=== PATIENT | female | born 1945 | race Caucasian/White ===

== ENCOUNTER 2016-07-31 15:16 | Emergency (ER) | payer OTHER ==
--- NOTE | 2016-07-31 15:56 | ED EKG INTERP ---
EKG Interpretation - EKG Time of EKG reading by physician:: 15:43 EKG Read and Signed by:: Davis Meng EKG Interpretation (*Must complete 3 of following elements*): Abnormal Rate: 80 Rhythm: normal sinus rhythm Comments: cannot rule out anterior infarct, age undetermined Attestation - Scribe Verification/Attestation Scribe:: Nadine Montero Acting as Scribe for:: Davis Meng Scribe documention review:: This chart was documented by a scribe and accurately reflects the service the provider performed and the decisions made by the provider.
--- NOTE | 2016-07-31 16:06 | EKG Report ---
Test Performed on : 07/31/2016 3:43:51 PM Test Reason : med clear Blood Pressure : / mmHG Vent. Rate : 080 BPM Atrial Rate : 080 BPM P-R Int : 158 ms QRS Dur : 084 ms QT Int : 380 ms P-R-T Axes : 068 008 038 degrees QTc Int : 438 ms Normal sinus rhythm. Cannot rule out Anterior infarct (cited on or before 03-OCT-2013) Abnormal ECG When compared with ECG of 03-OCT-2013 00:17, T wave inversion no longer evident in Inferior leads Unconfirmed Result
[2016-07-31 16:17] LABS: URINE CULTURE PL NEEDED? NO; URINE SOURCE CLEAN CATCH
[2016-07-31 16:25] LABS: MANUAL DIFF NEEDED? NO
[2016-07-31 16:28] LABS: BASO% 0.3 % (0.0-0.8); EOS# 0.03 X1000 (0.0-0.7); EOS% 0.5 % (0.0-10.0); HEMATOCRIT 37.2 % (37.0-47.0); HEMOGLOBIN 11.9 g/dL (12.0-16.0); IMM GRAN# 0.01 X1000 (0.0-0.04); IMM GRAN% 0.2 % (0.0-0.5); LYMPH# 1.95 X1000 (1.2-3.4); LYMPH% 31.8 % (20.5-51.1); MCV 90.7 FL (81-99); MONO# 0.58 X1000 (0.11-0.59); MONO% 9.5 % (1.7-9.3); MPV 9.3 FL (7.4-10.4); NEUT% 57.7 % (42.2-75.2); PLT 224 X1000 (130-400)
[2016-07-31 16:38] LABS: UR AMPHETAMINES QUAL NONE DETECTED (NONE DETECT); UR BARBITUATES QUAL NONE DETECTED (NONE DETECT); UR BENZODIAZEPIN QUAL NONE DETECTED (NONE DETECT); UR CANNABINOIDS QUAL NONE DETECTED (NONE DETECT); UR COCAINE QUAL NONE DETECTED (NONE DETECT); UR MDMA QUAL NONE DETECTED (NONE DETECT); UR METHADONE QUAL NONE DETECTED (NONE DETECT); UR METHAMPHETAMINE QUAL NONE DETECTED (NONE DETECT); UR OPIATES QUAL NONE DETECTED (NONE DETECT); UR OXYCODONE QUAL NONE DETECTED (NONE DETECT); UR PCP QUAL PRESUMPTIVE POSITIVE (NONE DETECT); UR TCA QUAL NONE DETECTED (NONE DETECT)
[2016-07-31 16:40] LABS: BILIRUBIN URINE NEGATIVE (NEGATIVE); BLOOD URINE NEGATIVE (NEGATIVE); CLARITY SL. CLOUDY (CLEAR); COLOR YELLOW; GLUCOSE URINE NEGATIVE (NEGATIVE); LEUKOCYTES URINE 1+ (NEGATIVE); NITRITE URINE NEGATIVE (NEGATIVE); PROTEIN URINE NEGATIVE (NEGATIVE); SP GRAVITY URINE 1.015; URINE EPITHELIAL CELLS <10 /HPF (<10); UROBILINOGEN URINE NORMAL
[2016-07-31 16:48] LABS: ACETAMINOPHEN < 1.2 ug/mL (10-30); AGAP 8; ALBUMIN 4.1 g/dL (3.5-5.0); ALKALINE PHOSPHATASE 124 U/L (32-104); BUN 15 mg/dL (8-22); CALCIUM 9.5 mg/dL (8.8-10.2); CHLORIDE 107 mmol/L (98-107); COSMO 286; GOT 14 U/L (10-30); GPT 11 U/L (10-36); MAGNESIUM 2.1 mg/dL (1.5-2.7); POTASSIUM 3.7 mmol/L (3.5-5.1); SODIUM 143 mmol/L (136-145); TCO2 28 mmol/L (25-35)
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
--- NOTE | 2016-07-31 20:24 | Diag Imaging Result Document ---
PROCEDURE NAME: HEAD W/O CONTRAST - 07/31/2016 CT BRAIN WITHOUT CONTRAST Dose reduction protocol. COMPARISON: 07/07/16. FINDINGS: No parenchymal hemorrhage. No epidural or subdural hematoma. No subarachnoid hemorrhage. There is mild atrophy. Minimal microvascular ischemic changes. Focal atrophy or long standing fluid collection along the left frontoparietal region. This is unchanged. No midline shift. No sinus opacification. IMPRESSION: No hemorrhage. No change from the prior exam. A preliminary report was given at 5:59 p.m.
[2016-07-31] MEDS ORDERED: CATAPRES PO ONE (20:58)
[2016-07-31] MEDS ORDERED: CATAPRES ONE (20:58)
[2016-07-31 21:01] VITALS: BP 196/108
--- NOTE | 2016-08-01 07:34 | Diag Imaging Result Document ---
PROCEDURE NAME: CHEST-2 VIEWS - 07/31/2016 FRONTAL AND LATERAL CHEST, TWO VIEWS: COMPARISON: 01/29/2014. FINDINGS: The lungs are well expanded. Mild increased AP diameter to the chest. The heart is not enlarged. The pulmonary vessels are small. No pleural effusions. Minimal atelectasis in the lower left lung. The right hemidiaphragm is elevated. No pneumonia. IMPRESSION: No acute abnormality.
== END 2016-07-31 21:16 ==
LOC: P.ED 15:16
DX: F25.0 Schizoaffective disorder, bipolar type (principal); Z04.6 Encounter for general psychiatric examination, requested by authority; E11.9 Type 2 diabetes mellitus without complications; R44.0 Auditory hallucinations; R44.1 Visual hallucinations; R94.31 Abnormal electrocardiogram [ECG] [EKG]; Z96.622 Presence of left artificial elbow joint; Z79.899 Other long term (current) drug therapy
CPT/HCPCS: 70450; 71020; 80053; 80305; 81001; 82607; 83735; 85025; 86592; 93005; G0480; 80320; 80324; 80329

== ENCOUNTER 2019-02-04 13:24 | Inpatient (IN) ==
--- NOTE | 2019-02-04 14:55 | Diag Imaging Result Doc PS360 ---
EXAM: CHEST-1 VIEW 02/04/2019 HISTORY: Fall TECHNIQUE: AP supine at [id number] COMMENT: There is COPD. There is no evidence of acute cardiac or pulmonary disease. Compared to 06/06/2018 there has been no appreciable change. IMPRESSION: Stable chest. Electronically signed by Luke Varner 02/04/2019 2:53 PM
--- NOTE | 2019-02-04 14:56 | Diag Imaging Result Doc PS360 ---
EXAM: XRAY PELVIS W/HIP 2-3VW LT INDICATION: fall, injury TECHNIQUE: 3 views COMPARISON: None. FINDINGS: There is an intertrochanteric fracture of the left hip with only mild displacement. A fracture line extends from the greater trochanter to the femoral shaft. No other discrete fracture is identified. There is no dislocation. The surrounding soft tissues are essentially unremarkable. IMPRESSION: Intertrochanteric fracture of the left hip as described. Electronically signed by Maurilio Alvares 02/04/2019 2:53 PM
[2019-02-04 15:08] LABS: URINE SOURCE CATH
[2019-02-04] MEDS ORDERED: ZOFRAN IV ONE (15:20)
[2019-02-04] MEDS ORDERED: DILAUDID IV ONE (15:20)
[2019-02-04 15:23] LABS: BASO# 0.03 X1000 (0.0-0.2); BASO% 0.3 % (0.0-0.8); EOS# 0.03 X1000 (0.0-0.7); EOS% 0.3 % (0.0-10.0); HEMATOCRIT 41.4 % (37.0-47.0); HEMOGLOBIN 13.4 g/dL (12.0-16.0); LYMPH# 3.26 X1000 (1.2-3.4); LYMPH% 31.8 % (20.5-51.1); MCH 29.6 PG (27-31); MCHC 32.4 g/dL (33-37); MCV 91.4 FL (81-99); MONO# 1.45 X1000 (0.11-0.59); MONO% 14.2 % (1.7-9.3); MPV 9.5 FL (7.4-10.4); NEUT# 5.37 X1000 (1.4-6.5); NEUT% 52.4 % (42.2-75.2); PLT 198 X1000 (130-400); RBC 4.53 XMIL (4.2-5.4); RDW 16.2 % (11.5-14.5); WBC 10.24 X1000 (4.8-10.8)
--- NOTE | 2019-02-04 15:32 | PROVIDER DOCUMENTATION ---
This chart was entered by Lynda Mendoza Scribe, acting as scribe for Win Jaimes MD. HPI-Musculoskeletal Pain/Inj - GENERAL Chief Complaint: Fall Stated Complaint: fall, left hip pain Time Seen by Provider: 02/04/19 13:34 Source: patient, EMS (first response) - HX OF PRESENT ILLNESS-MUSKULOSKELTAL Nature of Presenting Problem: 73 YOWF presents to the ed with c/o left hip pain and deformity noted shortened and externally rotated. pt was at the [facility] and fell from standing position landing on left side. pt sts pain only present of movement of left hip or leg and declines pain medication on exam. Quality of Pain: reports: sharp Severity in ED: severe (with movement) Onset/Duration: just prior to arrival Timing: intermittent Modifying Factors: improves with: immobilization. worse with: movement, palpation Any recent injury?: Yes Locality of Occurance: Other (3D Forms) Similar Symptoms Previously?: No Recently seen or treated by another doctor?: No - FALL INJURY Location of Pain/Injury: reports: other (left hip) Reason for Fall: reports: unknown Symptoms prior to fall:: reports: none Loss of Consciousness: no loss of consciousness Injury Associated Symptoms: reports: joint pain (left hip), snap/crack/pop sensation, unable to bear weight, trouble walking. denies: back/neck pain, chest pain, nausea, shortness of breath, vomiting - HIP/PELVIS PAIN/INJURY Hip Pain Location: reports: hip (L) Pain Radiation: reports: no radiation Context / Method of Injury: reports: fall Associated Symptoms: reports: denies symptoms Review of Systems - Adult - REVIEW OF SYSTEMS - ADULT Constitutional: denies: chills, fever Eyes: reports: no symptoms reported Ears, Nose, Mouth & Throat: reports: no symptoms reported Cardiovascular: denies: chest pain, palpitations Respiratory: reports: no symptoms reported Gastrointestinal: denies: abdominal pain, diarrhea, nausea, vomiting Genitourinary: reports: no symptoms reported Musculoskeletal: reports: see HPI, joint pain (left hip). denies: back pain, neck pain Integumentary: reports: no symptoms reported Neurological: denies: dizziness/vertigo, headache/migraines Psychiatric: reports: no symptoms reported Endocrine: reports: no symptoms reported Hematologic/Lymphatic: reports: no symptoms reported Allergic/Immunologic: reports: no symptoms reported All Other Systems: Reviewed and Negative Past History - Adult - PAST MEDICAL HISTORY-ADULT Review of Records: reports: Old Records Reviewed, Nursing Assessment Review, Medications Reviewed, Social history reviewed & non-contributory. Major Childhood Illnesses: reports: denies history Cardiovascular: reports: HTN, other (vascular dysfunction) Respiratory: reports: denies history Gastrointestinal: reports: denies history Obstetrical/Gynecological: reports: denies history Genitourinary: reports: denies history Musculoskeletal: reports: denies history Neurological: reports: CVA Psychiatric: reports: bipolar, schizophrenia Endocrine/Immune: reports: Diabetes, thyroid disorder Diabetes Type: Type 2 Diabetes controlled by:: Diet Other Conditions: reports: denies history - PRIOR SURGERIES/PROCEDURES Surgical/Procedure History: reports: hysterectomy, hernia repair, joint replacement (lt elbow) - PRIOR HOSPITALIZATIONS Prior Hospitalizations: reports: for other non-related - IMMUNIZATION STATUS Childhood Immunizations: See Nurse Assessment Flu Vaccine: See Nurse Assessment - FAMILY HISTORY Family History: reviewed, not pertinent - SOCIAL HISTORY Smoking: denies Substance Use: alcohol Alcohol Use Frequency: occasionally Number of drinks per typical drinking period:: 3-4 drinks Living Situation: alone Physical Exam-Injury Related - Physical Exam-Injury Related Initial Vital Signs Reviewed: Yes General Appearance: appears well, alert, mild distress (pain only with movement of lle), obese Eyes: PERRL/EOMI, pink conjunctivae Head, Ears, Nose, Mouth & Throat: moist mucous membranes, normal ENT inspection Neck: non-tender, full range of motion, supple, normal inspection Respiratory: chest non-tender, lungs clear, normal breath sounds Cardiovascular: normal peripheral pulses, regular rate, rhythm Chest/Breast: deferred Abdominal Exam: normal bowel sounds, non tender, soft Female Genitalia/Pelvic Exam: deferred Male Genitalia: deferred Rectal Exam: deferred Hemoccult Exam: deferred Lymphatic: no adenopathy Back Exam: normal inspection, no CVA tenderness, no vertebral tenderness Extremity: normal capillary refill, deformity (LEFT HIP WITH lle SHORTENED AND EXTERNALLY ROTATED). negative: normal gait, normal inspection Integumentary: normal color, warm/dry Psych/Mental Status: normal mood/affect, normal thought content, normal thought process, oriented x 3 - Glascow Coma Score Best Eye Response (Dusty): (4) open spontaneously Best Verbal Response (Dusty): (5) oriented Best Motor Response (Dusty): (6) obeys commands Dusty Total: 15 Progress - PLAN OF CARE/RESULTS Progress/Plan/Lab Results: Vital Signs - 8 hr 02/04/19 13:31 Temperature 98.1 F Pulse Rate 77 Respiratory Rate 24 Blood Pressure 167/124 O2 Sat by Pulse Oximetry 95 Laboratory Results - last 24 hr 02/04/19 02/04/19 14:10 14:10 WBC 10.24 RBC 4.53 Hgb 13.4 Hct 41.4 MCV 91.4 MCH 29.6 MCHC 32.4 L RDW Std Deviation 16.2 H Plt Count 198 MPV 9.5 Immature Gran % (Auto) 1.0 H Neut % (Auto) 52.4 Lymph % (Auto) 31.8 [place] % (Auto) 14.2 H Eos % (Auto) 0.3 Baso % (Auto) 0.3 Immature Gran # (Auto) 0.10 H Neut # (Auto) 5.37 Lymph # (Auto) 3.26 Salem # (Auto) 1.45 H Eos # (Auto) 0.03 Baso # (Auto) 0.03 Urine Source CATH Orders Category Date Time Status Flowers Cath Insertion ORDERED Care 02/04/19 15:05 Active CHEST-1 VIEW [RAD] Stat Exams 02/04/19 14:38 Completed XRAY PELVIS W/HIP 2-3VW LT [RAD] Stat Exams 02/04/19 13:38 Completed CBC WITH ELECTRONIC DIFF [HEME] Stat Lab 02/04/19 14:10 Completed COMPREHENSIVE METABOLIC PANEL [CHEM] Stat Lab 02/04/19 14:10 Received PROTIME WITH INR [COAG] Stat Lab 02/04/19 14:10 Received PTT [COAG] Stat Lab 02/04/19 14:10 Received TYPE & SCREEN [BBK] Stat Lab 02/04/19 14:49 Received URINALYSIS W/POSS RFLX CULT [URINALYSIS] Stat Lab 02/04/19 14:10 Results Hydromorphone [Dilaudid] Med 02/04/19 15:20 Discontinued 1 mg IV NOW ONE Ondansetron [Zofran] Med 02/04/19 15:20 Discontinued 4 mg IV NOW ONE EKG [EKG] Stat Ther 02/04/19 13:39 Draft Result Diagrams: 02/04/19 14:10 - REASSESSMENT Reassessment #1 Time Reassessed: 15:11 Status: unchanged - EKG 1 Time of EKG reading by physician:: 14:54 EKG Read and Signed by:: Win Jaimes EKG Interpretation (*Must complete 3 of following elements*): Abnormal Rate: 77 Rhythm: nsr Lamont: normal QRS: other (low voltage qrs) MS Interval: normal Comments: nonspecific ST abnormality - XRAY 1 XRAY: Bilateral XRAY Study: Chest Impression: See EMR Report (EXAM: CHEST-1 VIEW 02/04/2019 HISTORY: Fall TECHNIQUE: AP supine at [id number] COMMENT: There is COPD. There is no evidence of acute cardiac or pulmonary disease. Compared to 06/06/2018 there has been no appreciable change. IMPRESSION: Stable chest. Electronically signed by Luke Varner 02/04/2019 2:53 PM 02/04/19 1453 Interpreting Physician: Luke Varner MD Dictated Date/Time: 02/04/19 1452 cc: Minh Gary MD; Vinayak Dunlap MD) 2 XRAY: Left XRAY Study: Hip Impression: See EMR Report (EXAM: XRAY PELVIS W/HIP 2-3VW LT INDICATION: fall, injury TECHNIQUE: 3 views COMPARISON: None. FINDINGS: There is an intertrochanteric fracture of the left hip with only mild displacement. A fracture line extends from the greater trochanter to the femoral shaft. No other discrete fracture is identified. There is no dislocation. The surrounding soft tissues are essentially unremarkable. IMPRESSION: Intertrochanteric fracture of the left hip as described. Electronically signed by Maurilio Alvares 02/04/2019 2:53 PM 02/04/19 1453 Interpreting Physician: Maurilio Alvares MD Dictated Date/Time: 02/04/19 1452 cc: Win Jaimes MD; Vinayak Dunlap MD) - CONSULTS/PCP/HOSPITALIST Notification #1 *Consult/PCP/Hospitalist*: ortho dr ruth Time Discussed: 15:29 Reason/Comments: phone consult, agreed to consult. #2 Consult: Dr Dnulap Time Discussed: 15:31 Consult Disposition: Will see in ED, Admit Departure - Departure Date of Disposition Decision: 02/04/19 Time of Disposition Decision: 15:31 DIAGNOSIS: Intertrochanteric fracture, HTN (hypertension) Disposition: ADMITTED INPATIENT 09 Certified Medical Emergency: Emergent Condition: Fair Referrals and Follow-Ups: Vinayak Dunlap MD [Primary Care Provider] - - Critical Care Note This patient required my direct & personal management of CC.: No Attestation - Physician/ DIANE Attestation Patient care was provided by Advanced Practice Provider:: No The physician spent face to face time with patient:: Yes Advanced Practice Provider documentation review:: Supervising physician onsite and consulted in the evaluation and care of this patient. The physician did have a face to face encounter with the patient. This chart was documented by the indicated scribe, (Lynda Mendoza Scribe) and accurately reflects the services I performed and decisions made by me, Win Jaimes MD, as attested by the provider's signature.
--- NOTE | 2019-02-04 15:36 | EKG Report ---
Test Performed on : 02/04/2019 2:54:25 PM Test Reason : surgical clearance Blood Pressure : / mmHG Vent. Rate : 077 BPM Atrial Rate : 077 BPM P-R Int : 160 ms QRS Dur : 062 ms QT Int : 358 ms P-R-T Axes : 055 015 046 degrees QTc Int : 405 ms Normal sinus rhythm. Low voltage QRS Nonspecific ST abnormality Abnormal ECG When compared with ECG of 06-JUN-2018 14:15, No significant change was found Unconfirmed Result
[2019-02-04 15:38] LABS: INR 0.99; PROTIME 13.2 Seconds (11.0-16.0); PTT 26.2 Seconds (22.3-41.8)
[2019-02-04 15:39] LABS: AGAP 18; ALB/GLOB RATIO 1.7; ALBUMIN 3.8 g/dL (3.5-5.0); ALKALINE PHOSPHATASE 67 U/L (32-104); BUN 24 mg/dL (8-22); CALCIUM 9.3 mg/dL (8.8-10.2); CHLORIDE 102 mmol/L (98-107); COSMO 286; CREATININE 0.8 mg/dL (0.5-0.9); ESTIMATED GFR > 60; GLUCOSE 181 mg/dL (70-104); GOT 22 U/L (10-30); GPT 21 U/L (10-36); POTASSIUM 4.3 mmol/L (3.5-5.1); SODIUM 139 mmol/L (136-145); TCO2 19 mmol/L (25-35); TOTAL BILIRUBIN 0.27 mg/dL (0.20-1.00); TOTAL PROTEIN 6.1 g/dL (6.3-8.3)
[2019-02-04 15:43] LABS: BILIRUBIN URINE NEGATIVE (NEGATIVE); BLOOD URINE NEGATIVE (NEGATIVE); COLOR YELLOW; GLUCOSE URINE TRACE mg/dL (NEGATIVE); KETONE URINE TRACE mg/dL (NEGATIVE); LEUKOCYTES URINE NEGATIVE (NEGATIVE); NITRITE URINE NEGATIVE (NEGATIVE); PH URINE 5.5; PROTEIN URINE TRACE mg/dL (NEGATIVE); TURBIDITY URINE CLEAR (CLEAR); UROBILINOGEN URINE NORMAL (NORMAL)
[2019-02-04 15:45] LABS: UR EPITHELIAL CELLS <10 /HPF (<10); URINE BACTERIA NEGATIVE /HPF; URINE RBC <10 /HPF (<10); URINE WBC <10 /HPF (<10)
[2019-02-04] MEDS ORDERED: DILAUDID IM PRN (16:57)
[2019-02-04] MEDS ORDERED: ZOFRAN IV PRN (16:57)
[2019-02-04] MEDS ORDERED: DILAUDID IV PRN (18:56)
--- NOTE | 2019-02-04 19:08 | HISTORY AND PHYSICAL ---
CHIEF COMPLAINT: Fall and injury to her left hip. PRESENT ILLNESS: This is the first recent [facility] admission for this 73-year-old white female [facility] and tripped on a chair, falling and hitting her left hip. She was brought to the emergency room, and x-ray revealed intertrochanteric fracture, minimally displaced of the left hip. She was admitted for orthopedic consultation, repair of her hip fracture, and for further evaluation. She did not complain of dizziness and stated that her leg did not just give way. She has not fallen at home recently. She has a psychiatric history with schizoaffective disorder, and her last admission to [facility] was in May of this year. She has been followed by Dr. Orellana with psychiatric medications including Depakote. Chest x- ray in the emergency room showed some COPD. There is smoking history many years ago but not recently. PAST MEDICAL HISTORY: No recent medical hospitalizations. She has had several psychiatric admissions over the past few years. PRESENT MEDICATIONS: Metformin 500 mg at bedtime, Depakote 1000 mg p.o. at bedtime. ALLERGIES: Chlorpromazine, haloperidol, and others. REVIEW OF SYSTEMS: Significant for moderate obesity and venous insufficiency of her legs with edema. She has had no recent shortness of breath or chest pain. There is history of constipation, but bowels have been moving fairly regular for the past few weeks. There is no history of recent weight change. FAMILY HISTORY: Significant for hypertension and obesity. SOCIAL HISTORY: No recent smoking or alcohol usage. She lives with her sister. There are occasional arguments and delusional thoughts with confusion. PHYSICAL EXAMINATION: VITAL SIGNS: Temperature 98.4 degrees, heart rate 67, respirations 18, blood pressure 167/75, O2 saturation on nasal oxygen 100%. GENERAL: Patient is a well-developed, well-nourished, obese white female in mild distress with left hip pain. HEENT: Pupils equal, round, and reactive to light. Tympanic membranes without inflammation. Pharynx benign with no erythema or exudate. NECK: Supple with no mass or lymphadenopathy. There is no carotid bruit. HEART: Regular in rate and rhythm with no murmur, rub or gallop. LUNGS: Clear with no rales or rhonchi. ABDOMEN: Obese with no mass or organomegaly. EXTREMITIES: Pain with any motion of the left hip. There is a small contusion on her left elbow and left forearm secondary to the fall. There is 1+ ankle edema. RECTAL AND GENITALIA: Deferred. IMPRESSION: Intertrochanteric fracture of the left hip, diabetes, gross obesity, schizoaffective disorder. PLAN: Admit for orthopedic evaluation and surgery. She will most likely need rehab at discharge. cc: Vinayak Dunlap MD MTDD
[2019-02-04] MEDS: DEPAKOTE PO SCH (21:21)
[2019-02-04] MEDS: DILAUDID IV PRN ×2 (21:30→23:59)
[2019-02-04] MEDS ORDERED: CALMOSEPTINE OINTMENT TOP PRN (21:52)
[2019-02-04] MEDS ORDERED: NARCAN IV ONE (23:44)
[2019-02-04] MEDS ORDERED: NARCAN ONE (23:44)
[2019-02-05] MEDS: GLUCOPHAGE PO SCH
--- NOTE | 2019-02-05 06:41 | ORTHOPAEDICS CONSULTATION ---
DATE: 02/05/2019 CHIEF COMPLAINT: Left hip pain. HISTORY OF PRESENT ILLNESS: Ms. Stevenson is a 73-year-old female, who tripped and fell yesterday on 02/04/2019, and injured this left hip. She was brought to the emergency department where they identified a left hip fracture. She was admitted per the hospitalist service. She denies any dizziness or loss of consciousness. She does have a pertinent past medical history of schizoaffective disorder. She has been hurting in the left hip. She denies pain anywhere else. PAST MEDICAL HISTORY: Several psychiatric admissions over the past year for schizoaffective disorder. MEDICATIONS: Metformin and Depakote. ALLERGIES: Allergies are to haloperidol and chlorpromazine. SOCIAL HISTORY: She denies any smoking or alcohol use. FAMILY HISTORY: Positive for hypertension and obesity. REVIEW OF SYSTEMS: Positive for this left hip pain. All other systems are essentially negative or as listed above. PHYSICAL EXAMINATION: General: A well-developed female. She is lying in the hospital bed in no acute distress. Head and Neck: Normocephalic, atraumatic. Respirations: Nonlabored breathing. Cardiovascular: Regular rate. Abdomen: Nondistended. Extremities: Left lower extremity exam shows tenderness to palpation of the hip, it is little bit externally rotated. She does have good sensation to light touch to the toes. She has a faint DP pulse. RADIOGRAPHS: Several views of the left hip show an intertrochanteric/subtrochanteric femur fracture. ASSESSMENT: Left hip fracture. PLAN: I discussed with the patient and her family member about surgical intervention today. We are going to plan on trochanteric femoral nailing. She is n.p.o., and she is nonweightbearing left lower extremity right now. cc: MD Vinayak Flores MD
[2019-02-05] MEDS ORDERED: CALMOSEPTINE OINTMENT TOP PRN (08:27)
--- NOTE | 2019-02-05 09:14 | Diag Imaging Result Doc PS360 ---
CHEST-1 VIEW - 02/05/2019 INDICATION: dyspnea COMPARISON: 02/04/2019 FINDINGS: Lung volumes are severely low. No obvious infiltrates. Heart size remains top normal. IMPRESSION: Severely low lung volumes. Electronically signed by Mikhail Eller 02/05/2019 9:12 AM
--- NOTE | 2019-02-05 09:27 | PROGRESS NOTE ---
DATE: 02/05/2019 INTERVAL HISTORY: Vital signs, temperature 98.1 degrees, heart rate 88, respirations 20, blood pressure 137/74, O2 saturation 99% on Venturi mask. The patient had moderate hip pain over the night requiring two 2 to 3 hour IV Dilaudid. She developed hypoxia requiring O2 per mask. Lungs are clear to auscultation this morning. Abdomen is soft. PLAN: Chest x-ray, nebulizer treatments with albuterol and Atrovent, and pulmonary arteriogram to rule out PE. cc: Vinayak Dunlap MD
[2019-02-05] MEDS: DUONEB (A & A) INH SCH ×3 (10:10→20:20)
--- NOTE | 2019-02-05 10:11 | Diag Imaging Result Doc PS360 ---
CT ANGIOGRM PULMONARY ARTERIES - 02/05/2019 INDICATION: chest pain TECHNIQUE: Axial CT images were obtained after administering intravenous contrast. Coronal MIP images were generated. COMPARISON: None FINDINGS: There is a filling defect in the right lower lobe pulmonary artery. Heart size is top normal with no pericardial effusion. Lung volumes are severely low with significant bibasilar atelectasis. Otherwise no significant infiltrates. Airways are grossly clear. Upper abdomen appears normal. Bony structures are intact. IMPRESSION: Single pulmonary embolism in the right lower lobe pulmonary artery. This report was discussed with RT Simón on 02/05/2019 at 10:05 AM and was readback. This exam was performed using automated exposure control, adjustment of mA or kV according to patient size, and/or use of iterative reconstruction technique Electronically signed by Mikhail Eller 02/05/2019 10:08 AM
--- NOTE | 2019-02-05 13:33 | EKG Report ---
Test Performed on : 02/05/2019 1:26:49 PM Test Reason : PE Blood Pressure : / mmHG Vent. Rate : 084 BPM Atrial Rate : 084 BPM P-R Int : 140 ms QRS Dur : 076 ms QT Int : 356 ms P-R-T Axes : 067 040 055 degrees QTc Int : 420 ms Normal sinus rhythm. Normal ECG When compared with ECG of 04-FEB-2019 14:54, (Unconfirmed) No significant change was found Confirmed by Emili ARROYO, Jose Giron ([id number]) on 02/06/2019 8:29:00 AM
[2019-02-05] MEDS ORDERED: HEPARIN 25,000 UNITS/D5W 25,000 UNIT/250 ML IV.SOLN IV SCH ×2 (14:00→19:20)
[2019-02-05] MEDS ORDERED: HEPARIN IV ONE (14:02)
[2019-02-05] MEDS: DILAUDID IV PRN ×2 (15:29→22:35)
--- NOTE | 2019-02-05 18:34 | PROGRESS NOTE ---
DATE: 02/05/2019 VITAL SIGNS: Temperature 97.8 degrees, heart rate 82, respirations 17, blood pressure 127/78, O2 saturation on Venturi mask 88%. Patient removes the mask from her face at times. IMAGING: Chest x-ray this morning was unremarkable. Pulmonary arteriogram revealed pulmonary embolus in the right upper lung. ASSESSMENT: Discussion was made with Dr. Haider, surgeon, and Dr. Esparza, anesthesiologist. There was fear that the patient would develop ARDS and be difficult to get off the ventilator postop if she had surgery before her lungs improved. She was placed on heparin to treat the blood clot and pulmonary embolus. She will most likely have hip surgery on Sunday and remain on heparin until that time. She was placed on a full liquid diet. She seems somewhat lethargic, most likely due to pain medicines. Nebulizer treatments with albuterol and Atrovent were added. PLAN: Heparin per protocol, probable hip surgery on Sunday. cc: Vinayak Dunlap MD
[2019-02-05] MEDS: DEPAKOTE PO SCH (21:38)
[2019-02-06] MEDS: GLUCOPHAGE PO SCH ×2 (00:16→18:29)
[2019-02-06] MEDS ORDERED: TYLENOL PR PRN (00:40)
[2019-02-06] MEDS ORDERED: TYLENOL PO PRN (00:40)
[2019-02-06] MEDS ORDERED: HEPARIN 25,000 UNITS/D5W 25,000 UNIT/250 ML IV.SOLN IV SCH ×2 (01:40→14:00)
[2019-02-06] MEDS: DUONEB (A & A) INH SCH ×4 (03:35→21:37)
[2019-02-06 07:05] LABS: BASO# 0.01 X1000 (0.0-0.2); BASO% 0.1 % (0.0-0.8); HEMATOCRIT 35.8 % (37.0-47.0); HEMOGLOBIN 10.8 g/dL (12.0-16.0); IMM GRAN# 0.07 X1000 (0.0-0.04); IMM GRAN% 0.7 % (0.0-0.5); LYMPH% 16.9 % (20.5-51.1); MCH 29.8 PG (27-31); MCHC 30.2 g/dL (33-37); MCV 98.6 FL (81-99); MONO# 2.31 X1000 (0.11-0.59); MPV 9.1 FL (7.4-10.4); NEUT# 5.96 X1000 (1.4-6.5); NEUT% 59.3 % (42.2-75.2); PLT 150 X1000 (130-400); RBC 3.63 XMIL (4.2-5.4); RDW 16.8 % (11.5-14.5); WBC 10.05 X1000 (4.8-10.8)
[2019-02-06 07:41] LABS: LYMPHS 18 % (21-51); MONO 2 % (1-9); SEGS 78 % (42-75)
--- NOTE | 2019-02-06 08:48 | PROGRESS NOTE ---
DATE: 02/06/2019 OBJECTIVE: VITAL SIGNS: Stable with temperature 97.9 degrees, heart rate 84, respirations 15, blood pressure 118/68, O2 saturation on non-rebreather mask 99%. LABORATORY DATA: PTT per protocol, last reading was 68.8. Hemoglobin 10.8, hematocrit 35.8, white blood count 42902 with 59% neutrophils. Sugar 154. Pre-albumin 17.1. Intake and output, she was able to take 400 mL of p.o. liquids yesterday. Balance was -792 yesterday. She has had good urine output. IMAGING: Chest is clear to auscultation. PLAN: Improved respiratory status post blood clot in her right lung prior to hip surgery. Chest x-ray, blood gases and laboratory will be done tomorrow morning. Hopefully, her left hip can be pinned tomorrow. cc: Vinayak Dunlap MD
[2019-02-06] MEDS: DILAUDID IV PRN ×2 (13:41→23:23)
[2019-02-06] MEDS: DEPAKOTE PO SCH (22:02)
--- NOTE | 2019-02-07 00:56 | ORTHOPAEDICS PROGRESS NOTE ---
DATE: 02/06/2019 SUBJECTIVE: No acute events overnight. Patient is still on oxygen via non-rebreather. Her pulmonary status is improving per hospitalist note. She has no other complaints. OBJECTIVE: HEENT: Non-rebreather oxygen mask on. O2 sats 97%. Extremity: Left lower extremity reveals skin intact. Thighs soft and compressible. She had pain with log roll of the left hip. She is tender to palpation in her groin as well as lateral aspect of the hip. She is nontender in her knee, leg, ankle, and foot. Motor intact to EHL, tibialis anterior, gastrocsoleus complex. Sensation intact to light touch L3 to S1. Dorsalis pedis pulse is palpable. ASSESSMENT: A 74-year-old female with left intertrochanteric femur fracture. PLAN: Long discussion was held with the patient regarding injury and treatment for this. She has the unfortunate complication of DVT and pulmonary embolus at her admission, which has postponed surgery. I talked with Anesthesia today, who is going to come evaluate the patient again this evening. We discussed risks of surgery with the patient. Given her recent PE, she is going to be at high risk for serious complications, most likely from anesthesia. Other risks of surgery include infection, bleeding, damage to nerves and vessels around the area, continued pain following surgery, nonunion, malunion, need for revision surgery. We will tentatively make patient NPO at midnight tonight with plans for possible closed reduction intramedullary nailing tomorrow, if cleared by Anesthesia. She should continue to be nonweightbearing left lower extremity. Appreciate hospitalist recommendations. cc: Vinayak Dunlap MD
[2019-02-07] MEDS: DUONEB (A & A) INH SCH ×4 (03:37→21:49)
[2019-02-07 04:23] LABS: ALLEN TEST YES; BE 10.2 mmoll (-3.0-3.0); BLOOD TYPE ARTERIAL; HCO3-(ACT) 32.8 mmoll (20.0-26.0); METHB 1.3 % (0.0-1.5); O2(CT) 13.2 mL/dL (15.0-23.0); PO2(98.6) 63 mmHg (60-100); SAMPLE BLOOD; SAO2 95.5 % (95.0-100.0); THB 10.2 g/dL (11.5-17.4); pH(98.6) 7.42 (7.35-7.45)
[2019-02-07 04:27] LABS: MODALITY CANNULA; PCO2(98.6) 56 mmHg (35-45)
[2019-02-07] MEDS: DILAUDID IV PRN ×2 (05:52→13:51)
[2019-02-07 06:44] LABS: BASO# 0.01 X1000 (0.0-0.2); BASO% 0.1 % (0.0-0.8); EOS# 0.01 X1000 (0.0-0.7); EOS% 0.1 % (0.0-10.0); HEMATOCRIT 30.1 % (37.0-47.0); HEMOGLOBIN 9.2 g/dL (12.0-16.0); IMM GRAN# 0.05 X1000 (0.0-0.04); IMM GRAN% 0.5 % (0.0-0.5); LYMPH# 2.02 X1000 (1.2-3.4); LYMPH% 21.7 % (20.5-51.1); MCH 29.6 PG (27-31); MCHC 30.6 g/dL (33-37); MCV 96.8 FL (81-99); MONO# 1.85 X1000 (0.11-0.59); MONO% 19.9 % (1.7-9.3); MPV 8.8 FL (7.4-10.4); NEUT# 5.35 X1000 (1.4-6.5); NEUT% 57.7 % (42.2-75.2); PLT 139 X1000 (130-400); RBC 3.11 XMIL (4.2-5.4); RDW 16.4 % (11.5-14.5); WBC 9.29 X1000 (4.8-10.8)
--- NOTE | 2019-02-07 07:02 | Diag Imaging Result Doc PS360 ---
EXAM: CHEST-PORTABLE 02/07/2019 HISTORY: dyspnea TECHNIQUE: AP portable at 0603 COMMENT: The inspiration is less optimal than on 02/05/2019. There is presumably still some atelectasis in both lower lobes. No additional abnormalities are present. IMPRESSION: Bibasilar atelectasis. Poor inspiration. Electronically signed by Luke Varner 02/07/2019 7:00 AM
[2019-02-07 07:05] LABS: AGAP 7; BUN 26 mg/dL (8-22); CALCIUM 8.3 mg/dL (8.8-10.2); CHLORIDE 98 mmol/L (98-107); COSMO 281; CREATININE 0.6 mg/dL (0.5-0.9); ESTIMATED GFR > 60; GLUCOSE 149 mg/dL (70-104); SODIUM 137 mmol/L (136-145); TCO2 32 mmol/L (25-35)
--- NOTE | 2019-02-07 10:01 | PROGRESS NOTE ---
DATE: 02/07/2019 Vital signs stable with temperature 98.4 degrees, heart rate 76, respirations 16, blood pressure 129/51, and O2 saturation on nasal oxygen 96%. Blood gases: A pH 7.42, pCO2 56, PO2 of 63 on 5 L nasal oxygen. Sodium 137, potassium 5.0, BUN 26, creatinine 0.6, glucose 151, calcium 8.3, hemoglobin 9.2, hematocrit 30.1, and white blood count 9300. Chest x-ray shows some atelectasis at the bases due to poor inspiration. She is more alert this morning, and says she rested well last night. Chest is clear to auscultation. Abdomen is soft. Plan is to hopefully surgical procedure today. Anesthesia evaluation is pending. Patient is still on heparin drip. Protamine sulfate will need to be given prior to surgery to reduce anticoagulation. cc: Vinayak Dunlap MD
[2019-02-07] MEDS: HEPARIN 25,000 UNITS/D5W 25,000 UNIT/250 ML IV.SOLN IV SCH ×2 (10:26→18:16)
[2019-02-07] MEDS ORDERED: HEPARIN IV ONE (10:30)
--- NOTE | 2019-02-07 14:15 | ORTHOPAEDICS PROGRESS NOTE ---
DATE: 02/07/2019 SUBJECTIVE: No acute events overnight. The patient was evaluated by anesthesia this morning and her ABG was reviewed and demonstrated a PO2 of 63. Anesthesia is not comfortable putting her asleep right now. Wants to give her another day for her lungs to improve so we will hold off on surgery today. Otherwise, patient states she is feeling drowsy. No other complaints. OBJECTIVE: The patient is awake and alert. Hematocrit 30.Extremity: Examination left lower extremity shows skin intact. Thigh and calf soft and compressible. Toes are up and downgoing. Sensation grossly intact L3-S1. Dorsalis pedis pulse palpable. ASSESSMENT: A 73-year-old female with left intertrochanteric femur fracture. PLAN: Will discontinue NPO order for now as we are unable to do surgery today secondary to her pulmonary status. We will make her NPO at midnight for possible surgical intervention tomorrow if she improves throughout the day. Heparin drip for DVT prophylaxis due to her pulmonary embolus. Appreciate hospitalist recommendations. Nonweightbearing left lower extremity. cc: Vinayak Dunlap MD
[2019-02-07] MEDS ORDERED: DILAUDID IV PRN (15:52)
[2019-02-07] MEDS: DEMEROL IV PRN ×2 (16:25→23:21)
[2019-02-07] MEDS: GLUCOPHAGE PO SCH (18:00)
--- NOTE | 2019-02-07 19:47 | PROGRESS NOTE ---
DATE: 02/07/2019 VITAL SIGNS: Temperature 98.1 degrees, heart rate 83, respirations 16, blood pressure 141/61, O2 saturation on nasal oxygen 92%. SUBJECTIVE: The patient is about the same this evening, but complaining that the pain medicine is not helping enough. She was changed from 1 mg to 0.5 mg Dilaudid 2 to 3 hours p.r.n. pain. Dilaudid 1 mg was too strong. Dilaudid 0.5 mg does not seem to be as effective for the pain. Anesthesia was not comfortable in proceeding with surgery today with PO2 of 63 on 5 L nasal oxygen. PLAN: Recheck blood gases tomorrow morning and see if surgery can be done to be done tomorrow. Pain medicine is changed to IV Demerol. cc: Vinayak Dunlap MD
[2019-02-07] MEDS: DEPAKOTE PO SCH (20:36)
[2019-02-08] MEDS: DEMEROL IV PRN ×4 (03:16→23:09)
[2019-02-08] MEDS: DUONEB (A & A) INH SCH ×4 (03:45→21:04)
[2019-02-08 04:32] LABS: ALLEN TEST YES; BE 8.1 mmoll (-3.0-3.0); BLOOD TYPE ARTERIAL; HCO3-(ACT) 31.2 mmoll (20.0-26.0); METHB 1.4 % (0.0-1.5); O2(CT) 11.8 mL/dL (15.0-23.0); O2HB 91.8 % (95.0-99.0); PCO2(98.6) 49 mmHg (35-45); PO2(98.6) 63 mmHg (60-100); SAMPLE BLOOD; SAO2 95.6 % (95.0-100.0); THB 9.1 g/dL (11.5-17.4); pH(98.6) 7.44 (7.35-7.45)
[2019-02-08 04:33] LABS: MODALITY CANNULA
[2019-02-08] MEDS: HEPARIN 25,000 UNITS/D5W 25,000 UNIT/250 ML IV.SOLN IV SCH (06:03)
[2019-02-08 07:10] LABS: BASO# 0.03 X1000 (0.0-0.2); BASO% 0.3 % (0.0-0.8); EOS# 0.04 X1000 (0.0-0.7); EOS% 0.4 % (0.0-10.0); HEMATOCRIT 28.1 % (37.0-47.0); HEMOGLOBIN 8.7 g/dL (12.0-16.0); IMM GRAN# 0.15 X1000 (0.0-0.04); IMM GRAN% 1.7 % (0.0-0.5); LYMPH# 2.42 X1000 (1.2-3.4); MCH 29.4 PG (27-31); MCV 94.9 FL (81-99); MONO# 1.72 X1000 (0.11-0.59); MONO% 19.2 % (1.7-9.3); MPV 9.1 FL (7.4-10.4); NEUT% 51.4 % (42.2-75.2); PLT 149 X1000 (130-400); RBC 2.96 XMIL (4.2-5.4); RDW 16.1 % (11.5-14.5); WBC 8.96 X1000 (4.8-10.8)
--- NOTE | 2019-02-08 10:47 | PROGRESS NOTE ---
DATE: 02/08/2019 SUBJECTIVE: I am seeing Ms. Stevenson in Dr. Dunlap's placed today. The patient is stable. She has no complaints. OBJECTIVE: Afebrile, pulse 76, respirations 16, blood pressure 149/59, O2 saturation 97% on nasal cannula. CV: RRR. Lungs: Fairly clear. Abdomen: Active bowel sounds. Protuberant. No point tenderness. Extremities: No major lower extremity edema. Neuro: Patient seems at her baseline mentation. She is alert, talkative, answers questions appropriately. Moves all extremities well. She is on heparin protocol. White count 8.9, hemoglobin 8.7, platelets 149,000, PTT 89. ABG this morning shows pH 7.44, pCO2 49, PO2 63, HC03 is 31. O2 saturation 95.6, that is on 40% FiO2. Sodium 137, potassium 5.0, chloride 98, CO2 32, BUN 26, creatinine 0.6, blood sugars 125 to 227, calcium 8.3. ASSESSMENT: 1. Left intertrochanteric hip fracture. 2. Pulmonary embolus. 3. Type 2 diabetes mellitus. 4. Schizoaffective disorder. PLAN: Continue heparin drip. Continue oxygen supplementation, nebulizer treatments. We will add incentive spirometry. We will continue to follow with orthopedics and anesthesia to see when she is stable enough to undergo surgery. Dr. Dunlap has her on the low-dose metformin. Continue Accu- Cheks. She is doing well in regard to pain control, presently on Demerol. She is on her Depakote for mood stability, which appears appropriate. cc: MD Vinayak Babb MD
--- NOTE | 2019-02-08 15:59 | ORTHOPAEDICS PROGRESS NOTE ---
DATE: 02/08/2019 SUBJECTIVE: The patient is a pleasant, 73-year-old female, who is status post fall on 02/04/2019 sustaining a left intertrochanteric femur fracture. She was admitted to the hospital on her work up. The CT angiogram revealed evidence of pulmonary embolism in the right lower lobe pulmonary artery. She is currently in a sling. She is currently on heparin and also undergoing oxygen supplementation, and nebulizer treatments. PHYSICAL EXAMINATION: Patient's left lower extremity has expected tenderness to palpation. General movement. Calf compartments were soft. IMPRESSION: 1. Left intertrochanteric femur fracture. 2. Pulmonary embolus. PLAN: At this point, patient will continue her heparin drip. The patient will likely plan on surgical management once her pulmonary status is improved. Discussed with the anesthesia and anticipate it in a couple of days. We will see how she responds with her current treatment regimen and monitor her improvement. cc: MD Vinayak Lazo MD MTDD
[2019-02-08] MEDS: GLUCOPHAGE PO SCH (18:00)
[2019-02-08] MEDS: DEPAKOTE PO SCH ×2 (19:55→20:01)
[2019-02-09] MEDS: HEPARIN 25,000 UNITS/D5W 25,000 UNIT/250 ML IV.SOLN IV SCH ×2 (00:31→00:49)
[2019-02-09] MEDS: DEMEROL IV PRN ×6 (02:45→21:14)
[2019-02-09] MEDS: DUONEB (A & A) INH SCH ×4 (03:53→21:43)
--- NOTE | 2019-02-09 09:13 | ORTHOPAEDICS PROGRESS NOTE ---
DATE: 02/09/2019 SUBJECTIVE: The patient is a pleasant, 73-year-old female, who is currently being treated for pulmonary embolus with heparin. The patient is status post fall 5 days ago, sustaining a left intertrochanteric femur fracture. She has seen some improvement with regards to her pulmonary status. OBJECTIVE: On physical exam, the patient's left lower extremities is held in an externally rotated position. She has the expected tenderness to palpation. Compartments are soft. IMPRESSION: 1. Left intertrochanteric femur fracture. 2. Pulmonary embolus. PLAN: At this point, will discuss with Anesthesia, and will tentatively plan on proceeding with surgery tomorrow. Will continue with her heparin, and discontinue it approximately 4 hours prior to surgery, if she is cleared in the morning. cc: MD Vinayak Lazo MD
--- NOTE | 2019-02-09 11:18 | PROGRESS NOTE ---
DATE: 02/09/2019 SUBJECTIVE: Patient lying flat. She is comfortable currently. OBJECTIVE: Vital Signs: Afebrile, pulse is 75, respirations 20, blood pressure 128/68, O2 saturation on 5 L is 94% to 97%. CV: RRR. Lungs: Distant breath sounds. CTA. Abdomen: Protuberant, soft. Morbid obesity. Extremities: No major edema. Neurologic: Cranial nerves are intact. No focal deficits. LABORATORY DATA: PTT 76. Lab data reviewed from yesterday. ASSESSMENT: 1. Left intertrochanteric hip fracture. 2. Pulmonary embolus, on heparin treatment. 3. Type 2 diabetes mellitus. 4. Schizoaffective disorder. PLAN: Continue IV heparin drip. Continue supplemental oxygen, nebulizer treatments. Incentive spirometry has been added, and she is working on that, trying to aerate her lungs well and breathe deeply. Orthopedics and Anesthesia are considering surgical correction of the hip tomorrow morning. Continue Demerol for pain control. Will follow. cc: MD Vinayak Babb MD
[2019-02-09] MEDS ORDERED: HEPARIN 25,000 UNITS/D5W 25,000 UNIT/250 ML IV.SOLN IV SCH (14:44)
[2019-02-09] MEDS: GLUCOPHAGE PO SCH (17:02)
[2019-02-09] MEDS: DEPAKOTE PO SCH (21:14)
[2019-02-10] MEDS: DEMEROL IV PRN ×4 (02:11→23:31)
[2019-02-10] MEDS ORDERED: KEFZOL 1 GM/D5W 1 GM/50 ML IVPB IV SCH (02:30)
[2019-02-10] MEDS: DUONEB (A & A) INH SCH ×4 (02:53→21:25)
[2019-02-10 06:57] LABS: BASO# 0.05 X1000 (0.0-0.2); BASO% 0.4 % (0.0-0.8); EOS# 0.07 X1000 (0.0-0.7); EOS% 0.5 % (0.0-10.0); HEMATOCRIT 30.2 % (37.0-47.0); HEMOGLOBIN 9.3 g/dL (12.0-16.0); IMM GRAN# 0.44 X1000 (0.0-0.04); IMM GRAN% 3.3 % (0.0-0.5); LYMPH# 2.31 X1000 (1.2-3.4); LYMPH% 17.1 % (20.5-51.1); MCH 29.3 PG (27-31); MCHC 30.8 g/dL (33-37); MCV 95.3 FL (81-99); MONO# 2.62 X1000 (0.11-0.59); MONO% 19.5 % (1.7-9.3); MPV 8.8 FL (7.4-10.4); NEUT# 7.98 X1000 (1.4-6.5); NEUT% 59.2 % (42.2-75.2); PLT 196 X1000 (130-400); RBC 3.17 XMIL (4.2-5.4); RDW 15.9 % (11.5-14.5); WBC 13.47 X1000 (4.8-10.8)
[2019-02-10 07:06] LABS: AGAP 10; BUN 19 mg/dL (8-22); CALCIUM 7.5 mg/dL (8.8-10.2); CHLORIDE 96 mmol/L (98-107); COSMO 273; CREATININE 0.6 mg/dL (0.5-0.9); ESTIMATED GFR > 60; GLUCOSE 141 mg/dL (70-104); SODIUM 134 mmol/L (136-145); TCO2 28 mmol/L (25-35)
--- NOTE | 2019-02-10 07:56 | PROGRESS NOTE ---
DATE: 02/10/2019 VITAL SIGNS: Stable with temperature of 98.9 degrees, heart rate 80, respirations 16, blood pressure 125/75, O2 saturation on 6 L nasal oxygen 96%. LABORATORY DATA: Hemoglobin 9.3, hematocrit 30.2, white blood count 13,500 with 59% neutrophils. Sodium 134, potassium 5.0, chloride 96, BUN 19, creatinine 0.6, blood sugar 124, calcium 7.5. OBJECTIVE: Chest is clear. She continues to receive nebulizer treatments, and is performing incentive spirometry. PLAN: Hopefully, surgery today. cc: Vinayak Dunlap MD
[2019-02-10] MEDS ORDERED: HEPARIN 25,000 UNITS/D5W 25,000 UNIT/250 ML IV.SOLN IV SCH ×2 (08:15→23:12)
[2019-02-10 11:12] LABS: ALLEN TEST YES; BE 8.7 mmoll (-3.0-3.0); BLOOD TYPE ARTERIAL; HCO3-(ACT) 31.6 mmoll (20.0-26.0); METHB 1.6 % (0.0-1.5); O2(CT) 12.1 mL/dL (15.0-23.0); O2HB 91.3 % (95.0-99.0); PO2(98.6) 64 mmHg (60-100); SAMPLE BLOOD; SAO2 95.4 % (95.0-100.0); THB 9.4 g/dL (11.5-17.4); pH(98.6) 7.42 (7.35-7.45)
[2019-02-10 11:15] LABS: MODALITY CANNULA; PCO2(98.6) 53 mmHg (35-45)
[2019-02-10] MEDS ORDERED: NEO-SYNEPHRINE ONE (17:36)
[2019-02-10] MEDS ORDERED: SODIUM CHLORIDE 0.9% 20 ML ONE (17:36)
[2019-02-10] MEDS ORDERED: ROBINUL ONE (17:36)
[2019-02-10] MEDS ORDERED: XYLOCAINE-MPF 2% ONE (17:36)
[2019-02-10] MEDS ORDERED: DIPRIVAN 1% ONE (17:37)
[2019-02-10] MEDS ORDERED: FENTANYL ONE (17:38)
[2019-02-10] MEDS ORDERED: KEFZOL 2 GM/D5W 2 GM/50 ML IVPB IV ONE (17:43)
[2019-02-10] MEDS ORDERED: KEFZOL 1 GM/D5W 2 GM/100 ML IVPB ONE (17:44)
[2019-02-10] MEDS ORDERED: ZOFRAN ONE (18:17)
[2019-02-10] MEDS ORDERED: SENSORCAINE 0.25%/EPI 1:200,000 ONE (19:08)
[2019-02-10] MEDS ORDERED: MILK OF MAGNESIA PO PRN (19:32)
[2019-02-10] MEDS: GLUCOPHAGE PO SCH (20:15)
--- NOTE | 2019-02-10 20:27 | Diag Imaging Result Doc PS360 ---
EXAM: XRAY HIP UNILATERAL LT - 02/10/2019 HISTORY: post op hip TECHNIQUE: Portable left hip with femur four views COMPARISON: 02/04/2019 FINDINGS: There is been interval placement of intramedullary carito with neck screw fixating the previously identified intertrochanteric fracture of the proximal femur. Alignment appears satisfactory. There are no complicated features identified. There are degenerative changes noted at the knee. IMPRESSION: Satisfactory postoperative exam. Electronically signed by Kamaljit Tony 02/10/2019 8:25 PM
[2019-02-10] MEDS: COLACE PO SCH (20:50)
[2019-02-10] MEDS: DEPAKOTE PO SCH (20:50)
[2019-02-10] MEDS: PERCOCET-5 PO PRN (20:51)
[2019-02-10] MEDS ORDERED: HEPARIN IV ONE (23:06)
[2019-02-11] MEDS: PERCOCET-5 PO PRN ×4 (01:25→21:45)
[2019-02-11] MEDS ORDERED: KEFZOL 1 GM/D5W 1 GM/50 ML IVPB IV SCH (02:30)
[2019-02-11] MEDS: DEMEROL IV PRN (03:05)
[2019-02-11] MEDS: DUONEB (A & A) INH SCH ×4 (03:21→20:11)
[2019-02-11 05:26] LABS: HEMATOCRIT 25.2 % (37.0-47.0); HEMOGLOBIN 7.8 g/dL (12.0-16.0)
[2019-02-11 05:30] LABS: AGAP 11; BUN 25 mg/dL (8-22); CALCIUM 7.5 mg/dL (8.8-10.2); CHLORIDE 94 mmol/L (98-107); COSMO 273; CREATININE 0.6 mg/dL (0.5-0.9); ESTIMATED GFR > 60; GLUCOSE 137 mg/dL (70-104); POTASSIUM 5.3 mmol/L (3.5-5.1); SODIUM 133 mmol/L (136-145); TCO2 28 mmol/L (25-35)
--- NOTE | 2019-02-11 08:04 | OPERATIVE NOTE ---
PROCEDURE DATE: 02/10/2019 PREOPERATIVE DIAGNOSIS: Left intertrochanteric femur fracture. POSTOPERATIVE DIAGNOSIS: Left intertrochanteric femur fracture. PROCEDURE PERFORMED: Closed reduction and intramedullary nailing of left intertrochanteric femur fracture. ATTENDING SURGEON: Dr. Tyler Zimmerman. RESIDENT CARE AIDE: CATALINO Olvera. ANESTHESIA: General endotracheal anesthesia. COMPLICATIONS: None. SPECIMENS: None. DRAINS: None. BLOOD LOSS: 100 mL. IMPLANTS: Synthes TFN hip nail, left side, measuring 11 mm x 360 mm with a 115 mm blade. INDICATIONS FOR PROCEDURE: Ms. Stevenson is a 73-year-old lady who sustained a same-level fall on 02/04/2019, resulting in a left hip fracture. Her hospital stay was complicated by a pulmonary embolus on her day of arrival. We have been awaiting clearance for surgery, until the pulmonary status cleared up, which it did today. Given her fracture pattern, she would benefit from a closed reduction and intramedullary nailing. Risks, benefits, and alternative therapies were discussed with the patient as well as her sister, who is the caregiver. Risks of surgery included, but were not limited to risks of bleeding, infection, damage to nerves or vessels around the area, continued pain following surgery, malunion, nonunion, need for revision surgery, and also risks of anesthesia including blood clots, stroke, heart attack, and even . Patient understands these risks. All questions were answered. Informed consent was obtained. PROCEDURE IN DETAIL: Ms. Stevenson was identified by wristband and greeted in the preoperative holding area on 02/10/2019. Her left lower extremity, which was the operative site, was then marked with indelible ink per [facility] protocol. Following this, the patient was transferred back to the operating room for surgery. Upon entering the OR, she was transferred in the supine position on the [place] table. All bony prominences were well padded. General endotracheal anesthesia was induced. At this time, fluoroscopy was brought in to confirm AP and lateral images of the hip, and traction was pulled to help obtain reduction. The left lower extremity was then prepped and draped in routine sterile fashion. Formal time-out was performed, confirming correct patient, procedure, operative site, operative side, and administration of perioperative antibiotics. Everyone was in agreement. Patient received 2 g of Ancef prior to the incision. A 10 blade knife was used to make a standard 4 cm longitudinal incision just proximal to the greater trochanter. The knife was used to dissect through skin, subcutaneous tissue, and fascia. A guide pin was then placed on the tip of the greater trochanter. When we were satisfied with position on both medial and lateral images, this was driven down to the level of the lesser trochanter. Entry reamer and soft-tissue sleeve were then placed and taken down to the level of the greater trochanter. We then placed our ball-tipped guidewire all the way down to the knee, and AP and lateral images of the knee were taken, confirming intramedullary placement. Measuring device was then used to measure the nail, which was found to be 36 cm. We then began with sequential reaming. Started with an 11 mm reamer, followed by a 12 mm, and then 12.5 mm reamer which had good chatter. We took care to make sure the fracture remained reduced while reaming. Once this was done, our nail was opened and assembled on the back table. We then inserted the nail and mallet in position in routine fashion. We were satisfied with the reduction once it was fully seated. At this time, a more distal 3 cm longitudinal incision was made for placement of the cephalomedullary screw. A knife was used to dissect through the skin and subcutaneous tissue, and a slit in the IT band. The cannulas were then inserted down onto the lateral cortex of the femur. We then placed our guidewire into the femoral head and confirmed the placement just superior to the medial calcar and in the center of the femoral head on both AP and lateral views. When we were satisfied with this, it was then measured and found to be 120 mm. We thus opened a 115 mm spherical blade. The lateral cortex was then broached with a drill and our blade was impacted up into the femoral head in routine fashion. The locking screwdriver was then used to lock the blade in position. We did not dynamize it, given the fracture pattern and the location of the fracture. At this time, the nail insertion guide was removed. We then came to perfect circles for placement of one distal interlocking screw in a routine fashion. Now, when this was done, x-ray was used to take final AP and lateral images of the hip fracture site as well as distally at the knee. We were satisfied with our alignment and position of all implants. At this time, all wounds were copiously irrigated with normal saline. Then 0 Vicryl suture was used for closure of the IT band as well as deep closure of our proximal incision. Then 2-0 Vicryl suture was used for subcutaneous tissue closure, followed by autumn for skin closure. About 20 mL of 0.25% Marcaine with epinephrine were then injected in the subcutaneous tissue around all incision sites. Wounds were then dressed with Xeroform, 4x4s, Telfa, and a Tegaderm island dressing. At this time, the patient was then transferred over to a hospital stretcher, extubated, and taken to recovery in stable condition. There were no acute complications during surgery. All sponge and sharp counts were correct at the conclusion of the procedure. cc: Vinayak Dunlap MD
--- NOTE | 2019-02-11 09:07 | PROGRESS NOTE ---
DATE: 02/11/2019 VITAL SIGNS: Afebrile, heart rate 84, respirations 16, blood pressure 107/57, O2 saturation on 6 L nasal oxygen 96%. LABORATORY: Sodium 133, potassium 5.3, BUN 25, creatinine 0.6, glucose 137, calcium 7.5. Hemoglobin 7.8, hematocrit 25.2. The patient underwent nailing of the left hip yesterday evening. Postoperative x-ray showed good position. She is alert this morning and responding appropriately to questions. Her pain is minimal. PLAN: Transfuse 1 unit of packed red blood cells. Lab as scheduled for tomorrow morning. Physical Therapy will begin mobilizing. She is changed from heparin drip to Eliquis. cc: Vinayak Dunlap MD
[2019-02-11] MEDS: FERROUS SULFATE PO SCH (09:18)
[2019-02-11] MEDS: ELIQUIS PO SCH ×2 (09:18→21:45)
[2019-02-11] MEDS ORDERED: KEFZOL 2 GM/D5W 2 GM/50 ML IVPB IV ONE (10:30)
[2019-02-11] MEDS ORDERED: HEPARIN 25,000 UNITS/D5W 25,000 UNIT/250 ML IV.SOLN IV SCH (11:00)
[2019-02-11] MEDS ORDERED: NS 500 ML IV SCH (13:00)
--- NOTE | 2019-02-11 15:08 | ORTHOPAEDICS PROGRESS NOTE ---
DATE: 02/11/2019 SUBJECTIVE: No acute events overnight. The patient did well postoperatively. She was able to be transferred back to the floor on binasal cannula oxygen. She states the pain is improved in her left leg. She has not had much of an appetite. She has been tolerating liquids. No other complaints. OBJECTIVE: Hematocrit 25. Examination of the left lower extremity shows dressing to be clean, dry, intact. Thigh and calf are soft and depressible. Motor is intact, EHL, tibialis anterior, gastrocsoleus complex. Sensation intact to light touch, L3-S1. Dorsalis pedis pulse is palpable. ASSESSMENT: A 73-year-old female status post closed reduction intramedullary nailing of a left intertrochanteric femur fracture. PLAN: 1. The patient can be weightbearing as tolerated on her left lower extremity. Physical Therapy to mobilize with assistive device. 2. The patient is currently on a heparin drip, which is going to be transitioned to Eliquis per Dr. Dunlap's recommendations. She will be discharged on Eliquis. 3. Acute blood loss anemia. The patient is transfused 1 unit of packed red blood cells. 4. Ice to left lower extremity p.r.n. 5. Ancef x2 doses. 6. Disposition per primary team. The patient can follow up with me in clinic in 10 to 14 days for a wound check and staple removal. cc: Vinayak Dunlap MD
[2019-02-11] MEDS: GLUCOPHAGE PO SCH (17:57)
[2019-02-11] MEDS: DEPAKOTE PO SCH (21:44)
[2019-02-11] MEDS: COLACE PO SCH (21:45)
[2019-02-12] MEDS: PERCOCET-5 PO PRN ×5 (01:25→23:35)
[2019-02-12] MEDS: DUONEB (A & A) INH SCH ×4 (03:13→21:40)
[2019-02-12 07:12] LABS: HEMATOCRIT 24.3 % (37.0-47.0); HEMOGLOBIN 7.6 g/dL (12.0-16.0)
--- NOTE | 2019-02-12 08:48 | PROGRESS NOTE ---
DATE: 02/12/2019 VITAL SIGNS: Stable with temperature 98.8 degrees, heart rate 81, respirations 20, blood pressure 115/49, O2 saturation on 5 L nasal oxygen 95%. SUBJECTIVE: Hemoglobin 7.6, hematocrit 24.3. She complains of mild to moderate left leg pain. Chest is clear to auscultation. PLAN: Mobilize with physical therapy. Transfuse 1 more unit of packed red blood cells. cc: Vinayak Dunlap MD
[2019-02-12] MEDS: FERROUS SULFATE PO SCH (09:50)
[2019-02-12] MEDS: ELIQUIS PO SCH ×2 (09:50→23:33)
[2019-02-12] MEDS: PERIDEX MT SCH ×2 (10:21→23:33)
[2019-02-12] MEDS ORDERED: MILK OF MAGNESIA PO ONE (16:28)
[2019-02-12] MEDS: GLUCOPHAGE PO SCH (16:44)
[2019-02-12] MEDS: DEPAKOTE PO SCH (23:33)
[2019-02-12] MEDS: COLACE PO SCH (23:34)
[2019-02-13] MEDS: DUONEB (A & A) INH SCH ×4 (02:57→21:36)
[2019-02-13] MEDS: PERCOCET-5 PO PRN ×5 (04:33→23:24)
[2019-02-13 07:01] LABS: HEMATOCRIT 27.8 % (37.0-47.0); HEMOGLOBIN 8.7 g/dL (12.0-16.0)
[2019-02-13] MEDS ORDERED: LINZESS PO ONE (07:54)
[2019-02-13] MEDS: FERROUS SULFATE PO SCH (08:58)
[2019-02-13] MEDS: ELIQUIS PO SCH ×2 (08:58→23:24)
[2019-02-13] MEDS: PERIDEX MT SCH ×2 (09:03→23:25)
--- NOTE | 2019-02-13 09:10 | PROGRESS NOTE ---
DATE: 02/13/2019 VITAL SIGNS: Temperature 97.5 degrees, heart rate 66, respirations 16, blood pressure 123/55, O2 saturation on 4 L nasal oxygen of 97%. Hemoglobin 8.7, hematocrit 27.8. The patient had to be catheterized to void. She also has not had a bowel movement since surgery. Appetite is poor. She has not responded to docusate or milk of magnesia. She is given Linzess this morning. PLAN: Continue supportive care and physical therapy. Rehab is planned at discharge. cc: Vinayak Dunlap MD
[2019-02-13] MEDS: GLUCOPHAGE PO SCH (17:55)
[2019-02-13] MEDS: DEPAKOTE PO SCH (23:24)
[2019-02-14] MEDS: PERCOCET-5 PO PRN ×4 (02:56→23:55)
[2019-02-14] MEDS: DUONEB (A & A) INH SCH ×4 (04:00→18:56)
[2019-02-14] MEDS: LINZESS PO SCH ×2 (05:53→20:50)
[2019-02-14] MEDS: ELIQUIS PO SCH ×2 (09:12→20:50)
[2019-02-14] MEDS: PERIDEX MT SCH ×2 (09:12→20:50)
[2019-02-14] MEDS: FERROUS SULFATE PO SCH (09:12)
--- NOTE | 2019-02-14 10:42 | PROGRESS NOTE ---
DATE: 02/14/2019 OBJECTIVE: Vital signs: Temperature 98.3 degrees, heart rate 66, respiration 18, blood pressure 133/53, O2 saturation on 4 L nasal oxygen 96%. General: She states that she did not rest very well last night. She is alert and responsive. Chest: Clear. Abdomen: Soft. Extremities: Dressing on the lateral left hip is dry. PLAN: Continue physical therapy. Flowers catheter will be discontinued this afternoon. Rehab is planned for Sunday. cc: Vinayak Dunlap MD
[2019-02-14] MEDS: GLUCOPHAGE PO SCH (17:16)
[2019-02-14] MEDS: DEPAKOTE PO SCH (20:50)
[2019-02-15] MEDS: DUONEB (A & A) INH SCH ×6 (03:08→22:48)
[2019-02-15] MEDS: PERCOCET-5 PO PRN ×5 (03:39→20:29)
[2019-02-15] MEDS: LINZESS PO SCH (06:39)
[2019-02-15] MEDS: PERIDEX MT SCH ×2 (10:35→20:29)
[2019-02-15] MEDS: FERROUS SULFATE PO SCH (10:35)
[2019-02-15] MEDS: ELIQUIS PO SCH ×2 (10:35→20:29)
--- NOTE | 2019-02-15 14:40 | ORTHOPAEDICS PROGRESS NOTE ---
DATE: 02/15/2019 SUBJECTIVE: No acute events overnight. Patient is doing well. She went to physical therapy yesterday and went and stood at the side of the bed. She has still not ambulated around the room or in the hallway. She is tolerating a diet. OBJECTIVE: Extremity: Examination of left lower extremity shows surgical dressing is clean, dry, intact. Thigh and calf soft, compressible. Toes up and downgoing. Sensation grossly intact in left lower extremity. No pain with log roll hip. ASSESSMENT: A 73-year-old female status post ARLENE left intertrochanteric femur fracture. PLAN: 1. Weightbearing as tolerated physical therapy. She can mobilize with assistive device . 2. Eliquis, DVT prophylaxis per primary team. 3. Ice left lower extremity p.r.n. 4. Encourage patient to get up and mobilize. DISPOSITION: Per primary team. Patient is planning on being discharged to rehab facility on Sunday. She can follow up with me in clinic in 10 to 14 days for wound check and x-rays. cc: Vinayak Dunlap MD MTDD
[2019-02-15] MEDS: GLUCOPHAGE PO SCH (16:27)
[2019-02-15] MEDS: DEPAKOTE PO SCH (20:29)
[2019-02-16] MEDS: DUONEB (A & A) INH SCH ×5 (03:04→22:47)
[2019-02-16] MEDS: LINZESS PO SCH ×2 (05:15→06:19)
[2019-02-16] MEDS: PERCOCET-5 PO PRN ×3 (07:55→16:21)
[2019-02-16] MEDS: ELIQUIS PO SCH ×2 (08:29→22:55)
[2019-02-16] MEDS: FERROUS SULFATE PO SCH (08:29)
[2019-02-16] MEDS: PERIDEX MT SCH ×2 (08:29→22:55)
--- NOTE | 2019-02-16 12:05 | PROGRESS NOTE ---
DATE: 02/16/2019 Ms. Stevenson has a left-sided intertrochanteric fracture and has a pulmonary embolism. She is on Eliquis. Her lungs are clear. Heart sounds are normal. Physical exam otherwise is unchanged. She is getting physical therapy. -6 cc: MD Vinayak Serna MD
[2019-02-16] MEDS: GLUCOPHAGE PO SCH (16:22)
[2019-02-16] MEDS: DEPAKOTE PO SCH (22:55)
[2019-02-17] MEDS: PERCOCET-5 PO PRN (01:58)
[2019-02-17] MEDS: DUONEB (A & A) INH SCH ×2 (03:13→07:57)
--- NOTE | 2019-02-17 04:16 | PROGRESS NOTE ---
DATE: 02/15/2019 SUBJECTIVE: Ms. Stevenson had left intertrochanteric hip fracture. She has pulmonary embolism. She was seen by Dr. Vargas, and at present her vital signs are stable. Blood sugar was 122. Lungs clear. Heart sounds are normal. She is on Eliquis, as well as metformin. We will continue the medications on her. -4 cc: MD Vinayak Serna MD
[2019-02-17] MEDS: LINZESS PO SCH (06:41)
[2019-02-17] MEDS ORDERED: PERCOCET-5 PO PRN (07:45)
[2019-02-17] MEDS: FERROUS SULFATE PO SCH (08:23)
[2019-02-17] MEDS: PERIDEX MT SCH (08:23)
[2019-02-17] MEDS: ELIQUIS PO SCH (08:23)
--- NOTE | 2019-02-17 08:49 | DISCHARGE SUMMARY ---
ADMISSION DATE: 02/04/2019 DISCHARGE DATE: 02/17/2019 FINAL DIAGNOSES: 1. Intertrochanteric fracture of the left hip. 2. Pulmonary embolus. 3. Diabetes. 4. Schizoaffective disorder. 5. Decubitus ulcer of sacrum. 6. Gross obesity. 7. Ankle edema. DISPOSITION: To rehab facility. DISCHARGE MEDICATIONS: The usual medication at home, plus Percocet 5 one every 4 hours p.r.n. pain, Eliquis 5 mg b.i.d. She is on nasal oxygen at 4 L. HISTORY AND HOSPITAL COURSE: This is the first recent [facility] admission for this 73-year- old white female who fell at the [facility] over a chair, resulting in left hip pain. She presented to the emergency room, where x-rays revealed intertrochanteric fracture of the left hip. She was admitted, and Orthopedic consultation obtained. Orthopedic procedure was planned for the following day. During the night prior to anticipated procedure, she became hypoxic, requiring 100% O2 via nonrebreather mask. Pulmonary arteriogram the next morning revealed pulmonary embolus in the right upper lung. She was started on heparin and nebulizer treatments. Surgery was delayed until her respiratory status improved. She continued to need moderately high doses of oxygen for several days. After 6 days, it was determined that surgery could safely be performed. Intramedullary carito and nailing was done by Dr. Zimmerman on 02/10/2019. Postoperative course was uncomplicated. She did require transfusion with a couple of units of packed red blood cells. Last hematocrit on 02/13/2019 was 27.8. Appetite has improved, and she has had normal bowel movements with Linzess. She is transferred to rehab for additional care and physical therapy. cc: Vinayak Dunlap MD
[2019-02-17 11:18] VITALS: BP 125/63
== END 2019-02-17 12:48 | DRG 480 ==
LOC: SUPCPDRO → ED 13:24 → 4N 13:25
PROVIDERS: ADMIT Family Medicine; ATTEND Family Medicine

== ENCOUNTER 2019-04-04 09:13 | Inpatient (IN) ==
--- NOTE | 2019-04-04 09:36 | PROVIDER DOCUMENTATION ---
HPI-Neurological Disorder - General Stated Complaint: AMS Time Seen by Provider: 04/04/19 13:35 Source: patient, EMS Allergies/Adverse Reactions: Patient Allergies Allergy/AdvReac Type Severity Reaction Status Date / Time chlorpromazine HCl * Allergy Severe ANAPHYLAXIS Verified 04/04/19 13:35 [From Thorazine] haloperidol [From Haldol] Allergy Severe ABDOMINAL Verified 04/04/19 13:35 PAIN haloperidol lactate * Allergy Severe ABDOMINAL Verified 04/04/19 13:35 [From Haldol] PAIN thioridazine HCl * Allergy Severe ANAPHYLAXIS Verified 04/04/19 13:35 [From Mellaril] aripiprazole [From Abilify] Allergy Unknown Verified 04/04/19 13:35 lorazepam [From Ativan] Allergy DIZZINESS Verified 04/04/19 13:35 thiopental sodium * Allergy Unknown Verified 04/04/19 13:35 [From Pentothal] Home Medications: Home Medication List Medication Instructions Recorded Confirmed Last Taken Type Divalproex [Depakote] 1,000 mg PO QHS #60 tab 06/27/18 04/04/19 Unknown Rx Metformin [Glucophage] 500 mg PO HS 02/04/19 04/04/19 Unknown History Albuterol 2.5MG/Ipratrop 0.5MG 3 ml INH [id number] neb 02/17/19 04/04/19 Unknown Rx [Duoneb (A & A)] Apixaban [Eliquis] 5 mg PO BID tab 02/17/19 04/04/19 04/04/19 Rx Ferrous Sulfate 325 mg PO DAILY tab 02/17/19 04/04/19 04/04/19 Rx Linaclotide [Linzess] 145 mcg PO DAILY@0700 cap 02/17/19 04/04/19 04/04/19 Rx Buspirone HCl 1 tab PO TID 04/04/19 04/04/19 04/04/19 History Docusate Sodium [Colace] 1 cap PO BID 04/04/19 04/04/19 04/04/19 History Donepezil [Aricept] 1 tab PO QHS 04/04/19 04/04/19 Unknown History Duloxetine [Cymbalta] 1 tab PO BID 04/04/19 04/04/19 04/04/19 History Methocarbamol 1 tab PO TID PRN 04/04/19 04/04/19 Unknown History Oxycodone/APAP 5 mg/325 mg 1 ea PO Q4-6H PRN PRN 04/04/19 04/04/19 Unknown History [Percocet-5] Quetiapine [Seroquel] 1 tab PO BID 04/04/19 04/04/19 Unknown History Quetiapine [Seroquel] 1 tab PO QHS 04/04/19 04/04/19 Unknown History Trazodone [Desyrel] 1 tab PO QHS PRN 04/04/19 04/04/19 Unknown History - History of Present Illness-Neuro Nature of Presenting Problem: Patient with a h/o PE on eliquis, bipolar disorder, Schizophrenia, tremors, DM, left hip fracture s/p ORIF was brought by EMS this am reporting altered mental status. EMS obtained history from patient,s sister and had difficulty obtaining information from patient. i later obtained history from sister who states that patient has not been able to walk good since after surgery and that she does not thinks PT worked well with her. sister states that patient had near fainting experience yesterday and came close to falling and that Patient had a fall as this morning shortly after getting out of her bed as patient had earlier on informed me. Patient denies any head injury or trauma. She presently has no pain or other symptoms Headache Location: reports: other (Altered mental status) Onset/Duration: reports: 1 hour ago Timing: reports: improving Character of Altered Mental Status: reports: decreased responsiveness Any recent trauma/injury?: reports: other (fall with no injury) New weakness or altered sensation location:: reports: none Cognitive Baseline: other (oriented to place and person only but not to time) Associated Symptoms: reports: denies symptoms Review of Systems - Adult - REVIEW OF SYSTEMS - ADULT Constitutional: reports: no symptoms reported Eyes: reports: no symptoms reported Ears, Nose, Mouth & Throat: reports: no symptoms reported Cardiovascular: reports: no symptoms reported Respiratory: reports: no symptoms reported Gastrointestinal: reports: no symptoms reported Genitourinary: reports: no symptoms reported Integumentary: reports: see HPI Neurological: reports: see HPI Psychiatric: reports: see HPI Endocrine: reports: no symptoms reported Hematologic/Lymphatic: reports: no symptoms reported Allergic/Immunologic: reports: no symptoms reported Past History - Adult - PAST MEDICAL HISTORY-ADULT Review of Records: reports: Nursing Assessment Review, Medications Reviewed, Social history reviewed & non-contributory. Major Childhood Illnesses: reports: denies history Cardiovascular: reports: HTN, other (vascular dysfunction) Respiratory: reports: denies history Gastrointestinal: reports: denies history Obstetrical/Gynecological: reports: denies history Genitourinary: reports: denies history Musculoskeletal: reports: denies history, other fractures (left hip s/o fixation) Neurological: reports: CVA Psychiatric: reports: bipolar, schizophrenia Endocrine/Immune: reports: Diabetes, thyroid disorder Other Conditions: reports: denies history - PRIOR SURGERIES/PROCEDURES Surgical/Procedure History: reports: hysterectomy, hernia repair, joint replacement (lt elbow) - PRIOR HOSPITALIZATIONS Prior Hospitalizations: reports: for other non-related - IMMUNIZATION STATUS Childhood Immunizations: See Nurse Assessment Flu Vaccine: See Nurse Assessment - FAMILY HISTORY Family History: reviewed, not pertinent - SOCIAL HISTORY Smoking: denies Substance Use: none/never Alcohol Use Frequency: never Physical Exam- Neurological - Physical Exam-Neuro General Appearance: alert, no apparent distress, slow to respond (and has word finding difficulty) Eye Exam: bilateral eye: PERRL, EOMI HENMT: normocephalic/atraumatic, other (dry mucous membraine) Head Injury: no evidence of injury Neck: non-tender Respiratory: chest non-tender Cardiovascular: normal peripheral pulses Abdominal Exam: normal bowel sounds Extremity: no pedal edema intermediate designer Exam: normal hearing, PERRL Motor/Sensory: other (able to move both upper extremities but has decrease strenght in the lower extremities. baseline is unknown) Neurologic: intermediate designer II-XII nml as tested Integumentary: normal color - Glascow Coma Scale Best Eye Response: (4) open spontaneously Best Verbal Response: (5) oriented Best Motor Response: (6) obeys commands Progress - PLAN OF CARE/RESULTS Progress/Plan/Lab Results: Vital Signs - 8 hr 04/04/19 09:31 04/04/19 09:51 04/04/19 10:19 Temperature 97.9 F Pulse Rate 77 78 75 Pulse Rate [Sitting] Pulse Rate [Supine] Respiratory Rate 18 17 13 Blood Pressure 154/60 148/70 Blood Pressure [Sitting] Blood Pressure [Supine] O2 Sat by Pulse Oximetry 93 L 98 98 04/04/19 10:30 04/04/19 11:06 04/04/19 12:02 Temperature Pulse Rate 74 74 76 Pulse Rate [Sitting] Pulse Rate [Supine] Respiratory Rate 17 18 20 Blood Pressure 142/81 159/84 169/98 Blood Pressure [Sitting] Blood Pressure [Supine] O2 Sat by Pulse Oximetry 96 97 96 04/04/19 12:04 04/04/19 13:00 04/04/19 14:00 Temperature Pulse Rate 75 78 Pulse Rate [Sitting] 82 Pulse Rate [Supine] 79 Respiratory Rate 18 22 Blood Pressure 152/81 157/90 Blood Pressure [Sitting] 169/98 Blood Pressure [Supine] 163/92 O2 Sat by Pulse Oximetry 96 98 04/04/19 14:59 Temperature Pulse Rate 84 Pulse Rate [Sitting] Pulse Rate [Supine] Respiratory Rate 14 Blood Pressure 169/79 Blood Pressure [Sitting] Blood Pressure [Supine] O2 Sat by Pulse Oximetry Laboratory Results - last 24 hr 04/04/19 04/04/19 04/04/19 10:31 11:07 11:07 WBC RBC Hgb Hct MCV MCH MCHC RDW Std Deviation Plt Count MPV Immature Gran % (Auto) Neut % (Auto) Lymph % (Auto) [place] % (Auto) Eos % (Auto) Baso % (Auto) Immature Gran # (Auto) Neut # (Auto) Lymph # (Auto) [place] # (Auto) Eos # (Auto) Baso # (Auto) PT 17.0 H INR 1.36 PTT (Actin FS) 37.9 Sodium 143 Potassium 3.7 Chloride 102 Carbon Dioxide 21 L Anion Gap 20 BUN 11 Creatinine 0.7 Estimated GFR/1.73 m2 > 60 BUN/Creatinine Ratio 16 Glucose 103 POC Glucose 98 Calculated Osmolality 285 Calcium 8.3 L Total Bilirubin 0.52 AST 24 ALT 14 Alkaline Phosphatase 128 H Troponin T Total Protein 5.3 L Albumin 3.5 Globulin 1.8 Albumin/Globulin Ratio 1.9 Urine Source Urine Color Urine Turbidity Urine pH Ur Specific [place] Urine Protein Ur Glucose (Stick) Ur Ketones (Stick) Urine Blood Urine Nitrite Urine Bilirubin Urobilinogen Dipstick Urine Leukocytes Urine WBC (Auto) Urine RBC (Auto) U Epithel Cells (Auto) Urine Bacteria (Auto) Urine Crystals Small Round Cells Urine Casts Urine Yeast-like Cells Urine Opiates Screen Ur Oxycodone Screen Ur Methadone, Qual Ur Barbiturates Screen Ur Phencyclidine Scrn Ur Amphetamines Screen U Benzodiazepines Scrn Urine Cocaine Screen U Cannabinoids Screen 04/04/19 04/04/19 04/04/19 11:07 11:07 14:07 WBC 5.70 RBC 3.48 L Hgb 10.2 L Hct 33.6 L MCV 96.6 MCH 29.3 MCHC 30.4 L RDW Std Deviation 17.9 H Plt Count 123 L MPV 9.0 Immature Gran % (Auto) 0.9 H Neut % (Auto) 44.1 Lymph % (Auto) 31.1 [place] % (Auto) 23.7 H Eos % (Auto) 0.0 Baso % (Auto) 0.2 Immature Gran # (Auto) 0.05 H Neut # (Auto) 2.52 Lymph # (Auto) 1.77 [place] # (Auto) 1.35 H Eos # (Auto) 0.00 Baso # (Auto) 0.01 PT INR PTT (Actin FS) Sodium Potassium Chloride Carbon Dioxide Anion Gap BUN Creatinine Estimated GFR/1.73 m2 BUN/Creatinine Ratio Glucose POC Glucose Calculated Osmolality Calcium Total Bilirubin AST ALT Alkaline Phosphatase Troponin T < 0.010 Total Protein Albumin Globulin Albumin/Globulin Ratio Urine Source CATH Urine Color ORANGE Urine Turbidity TURBID Urine pH 6.5 Ur Specific [place] 1.011 Urine Protein 70 A Ur Glucose (Stick) NEGATIVE Ur Ketones (Stick) 10 A Urine Blood MODERATE A Urine Nitrite POSITIVE A Urine Bilirubin NEGATIVE Urobilinogen Dipstick 4 A Urine Leukocytes LARGE A Urine WBC (Auto) TNTC A Urine RBC (Auto) 20-40 A U Epithel Cells (Auto) <10 Urine Bacteria (Auto) 4+ Urine Crystals Not Reportable Small Round Cells Not Reportable Urine Casts NONE SEEN Urine Yeast-like Cells NONE SEEN Urine Opiates Screen Ur Oxycodone Screen Ur Methadone, Qual Ur Barbiturates Screen Ur Phencyclidine Scrn Ur Amphetamines Screen U Benzodiazepines Scrn Urine Cocaine Screen U Cannabinoids Screen 04/04/19 14:07 WBC RBC Hgb Hct MCV MCH MCHC RDW Std Deviation Plt Count MPV Immature Gran % (Auto) Neut % (Auto) Lymph % (Auto) [place] % (Auto) Eos % (Auto) Baso % (Auto) Immature Gran # (Auto) Neut # (Auto) Lymph # (Auto) [place] # (Auto) Eos # (Auto) Baso # (Auto) PT INR PTT (Actin FS) Sodium Potassium Chloride Carbon Dioxide Anion Gap BUN Creatinine Estimated GFR/1.73 m2 BUN/Creatinine Ratio Glucose POC Glucose Calculated Osmolality Calcium Total Bilirubin AST ALT Alkaline Phosphatase Troponin T Total Protein Albumin Globulin Albumin/Globulin Ratio Urine Source Urine Color Urine Turbidity Urine pH Ur Specific [place] Urine Protein Ur Glucose (Stick) Ur Ketones (Stick) Urine Blood Urine Nitrite Urine Bilirubin Urobilinogen Dipstick Urine Leukocytes Urine WBC (Auto) Urine RBC (Auto) U Epithel Cells (Auto) Urine Bacteria (Auto) Urine Crystals Small Round Cells Urine Casts Urine Yeast-like Cells Urine Opiates Screen NONE DETECTED Ur Oxycodone Screen NONE DETECTED Ur Methadone, Qual NONE DETECTED Ur Barbiturates Screen NONE DETECTED Ur Phencyclidine Scrn NONE DETECTED Ur Amphetamines Screen NONE DETECTED U Benzodiazepines Scrn NONE DETECTED Urine Cocaine Screen NONE DETECTED U Cannabinoids Screen NONE DETECTED Orders Category Date Time Status Admit - [facility] Routine AdmDCTranf 04/04/19 15:04 Active Cardiac Monitoring DIRECTED Care 04/04/19 09:26 Active Finger Stick Blood Sugar (ED) DIRECTED Care 04/04/19 09:26 Completed Misc. NRSG Communication Order DIRECTED Care 04/04/19 09:26 Active Nursing [Misc. NRSG Communication Order] DIRECTED Care 04/04/19 11:53 Active Saline Loc NOW Care 04/04/19 09:26 Active Straight Catheterization ORDERED Care 04/04/19 14:11 Active CHEST-PORTABLE [RAD] Stat Exams 04/04/19 09:[address] HEAD W/O CONTRAST [CT] Stat Exams 04/04/19 09:26 Completed XRAY HIP UNILATERAL LT [RAD] Stat Exams 04/04/19 09:43 Completed XRAY PELVIS W/HIP 2-3VW RT [RAD] Stat Exams 04/04/19 09:43 Completed BLOOD CULTURE [BLDCUL] Stat Lab 04/04/19 15:02 Uncollected CBC WITH ELECTRONIC DIFF [HEME] Stat Lab 04/04/19 11:07 Completed COMPREHENSIVE METABOLIC PANEL [CHEM] Stat Lab 04/04/19 11:07 Completed PROTIME WITH INR [COAG] Stat Lab 04/04/19 11:07 Completed PTT [COAG] Stat Lab 04/04/19 11:07 Completed TROPONIN T Stat Lab 04/04/19 11:07 Completed URINALYSIS W/POSS RFLX CULT [URINALYSIS] Stat Lab 04/04/19 14:07 Completed URINE CULTURE [RM] Routine Lab 04/04/19 15:10 Ordered URINE DRUG SCREEN Stat Lab 04/04/19 14:07 Completed URINE MANUAL MICROSCOPIC [URINALYSIS] Stat Lab 04/04/19 14:07 Completed Levofloxacin 750 mg/D5w [Levaquin 750 mg/D5w] Med 04/04/19 15:01 Active 750 mg in 150 ml IV NOW EKG [EKG] Stat Ther 04/04/19 09:26 Draft Transfer/Admit Order [TRANSFER] Routine Transfer 04/04/19 15:12 Ordered Result Diagrams: 04/04/19 11:07 04/04/19 11:07 - REASSESSMENT Reassessment #1 Status: unchanged (patient seen with family , awake, allert, no new complaint. Discussed abnormal UA and the need to admit. Pt and family are okay with it.) - EKG 1 Time of EKG reading by physician:: 13:00 EKG Read and Signed by:: Emma Amador EKG Interpretation (*Must complete 3 of following elements*): Normal Rate: 71 Rhythm: NSR [place]: normal QRS: normal - XRAY 1 XRAY Study: Femur ( EXAM: XRAY PELVIS W/HIP 2-3VW RT 04/04/2019 HISTORY: fall, had surgery left femur TECHNIQUE: AP pelvis and right hip three views COMMENT: There has been internal fixation of the left proximal femur. There is no evidence of fracture dislocation or joint space narrowing on the right. There are surgical clips in the upper pelvis. IMPRESSION: No acute bony abnormality. Electronically signed by Luke Varner 04/04/2019 10:24 AM 04/04/19 1024 Interpreting Physician: Luke Varner MD Dictated Date/Time: 04/04/19 1023) 2 XRAY: Left XRAY Study: Hip ( EXAM: XRAY HIP UNILATERAL LT 04/04/2019 HISTORY: fall TECHNIQUE: Left hip three views COMMENT: There has been internal fixation of a fracture of the proximal left femur with intramedullary carito and hip nail. There is considerable callus formation around the fracture with some heterotopic bone formation seen adjacent to the greater trochanter and lesser trochanter. This was not the case on 02/10/2019. IMPRESSION: Healing fracture proximal left femur. Electronically signed by Luke Varner 04/04/2019 10:25 AM) 4 XRAY Study: Chest ( EXAM: CHEST-PORTABLE 04/04/2019 HISTORY: stroke like symptoms TECHNIQUE: AP supine chest COMMENT: There is no evidence of acute cardiac or pulmonary disease. There are calcified granulomatous nodes in the subcarina on the right. The inspiration is better than on 02/07/2019. Otherwise are has been no significant change. IMPRESSION: No acute disease. Electronically signed by Luke Varner 04/04/2019 10:23 AM 04/04/19 1023) - CT/MRI 1 CT Study: Head ( EXAM: CT HEAD W/O CONTRAST 04/04/2019 HISTORY: stroke like symptoms TECHNIQUE: This exam was performed using automated exposure control, adjustment of mA or kV according to patient size, and/or use of iterative reconstruction technique. COMMENT: There is no evidence of mass effect, or bleed. There is a CSF density extra-axial fluid collection over the left frontal lobe which was also present on 06/06/2018. This is probably an arachnoid cyst. There is densely calcified extra-axial nodules posteriorly in the parietal region on the right which has also not changed and may be related to ossified meningioma to. No evidence of mass effect is present. Overall the appearance the brain has not changed significantly. There is some fluid in the mastoid air cells on the left. There is a rounded calcific nodule posteriorly in the right sphenoid sinus of uncertain significance. This was not demonstrated on the previous study and may be a loose or foreign body. IMPRESSION: No evidence of acute intracranial disease. Electronically signed by Luke Varner 04/04/2019 10:09 AM) - CONSULTS/PCP/HOSPITALIST Notification #1 *Consult/PCP/Hospitalist*: Dr Dunlap Time Discussed: 15:00 Consult Disposition: Admit (agrees to admit pt for UTI and AMS) Departure - Departure Date of Disposition Decision: 04/04/19 Time of Disposition Decision: 15:18 DIAGNOSIS: UTI (urinary tract infection) Qualifiers: Urinary tract infection type: site unspecified Hematuria presence: without hematuria Qualified Code(s): N39.0 - Urinary tract infection, site not specified Altered mental state Qualifiers: Altered mental status type: transient alteration of awareness Qualified Code(s): R40.4 - Transient alteration of awareness Disposition: ADMITTED INPATIENT 09 Certified Medical Emergency: Emergent Condition: Fair Referrals and Follow-Ups: Vinayak Dunlap MD [Primary Care Provider] - - Critical Care Note This patient required my direct & personal management of CC.: No Attestation - Physician/ DIANE Attestation Patient care was provided by Advanced Practice Provider:: No The physician spent face to face time with patient:: Yes Advanced Practice Provider documentation review:: Supervising physician onsite and consulted in the evaluation and care of this patient. The physician did have a face to face encounter with the patient.
--- NOTE | 2019-04-04 10:11 | Diag Imaging Result Doc PS360 ---
EXAM: CT HEAD W/O CONTRAST 04/04/2019 HISTORY: stroke like symptoms TECHNIQUE: This exam was performed using automated exposure control, adjustment of mA or kV according to patient size, and/or use of iterative reconstruction technique. COMMENT: There is no evidence of mass effect, or bleed. There is a CSF density extra-axial fluid collection over the left frontal lobe which was also present on 06/06/2018. This is probably an arachnoid cyst. There is densely calcified extra-axial nodules posteriorly in the parietal region on the right which has also not changed and may be related to ossified meningioma to. No evidence of mass effect is present. Overall the appearance the brain has not changed significantly. There is some fluid in the mastoid air cells on the left. There is a rounded calcific nodule posteriorly in the right sphenoid sinus of uncertain significance. This was not demonstrated on the previous study and may be a loose or foreign body. IMPRESSION: No evidence of acute intracranial disease. Electronically signed by Luke Varner 04/04/2019 10:09 AM
--- NOTE | 2019-04-04 10:26 | Diag Imaging Result Doc PS360 ---
EXAM: CHEST-PORTABLE 04/04/2019 HISTORY: stroke like symptoms TECHNIQUE: AP supine chest COMMENT: There is no evidence of acute cardiac or pulmonary disease. There are calcified granulomatous nodes in the subcarina on the right. The inspiration is better than on 02/07/2019. Otherwise are has been no significant change. IMPRESSION: No acute disease. Electronically signed by Luke Varner 04/04/2019 10:23 AM
--- NOTE | 2019-04-04 10:26 | Diag Imaging Result Doc PS360 ---
EXAM: XRAY PELVIS W/HIP 2-3VW RT 04/04/2019 HISTORY: fall, had surgery left femur TECHNIQUE: AP pelvis and right hip three views COMMENT: There has been internal fixation of the left proximal femur. There is no evidence of fracture dislocation or joint space narrowing on the right. There are surgical clips in the upper pelvis. IMPRESSION: No acute bony abnormality. Electronically signed by Luke Varner 04/04/2019 10:24 AM
--- NOTE | 2019-04-04 10:27 | Diag Imaging Result Doc PS360 ---
EXAM: XRAY HIP UNILATERAL LT 04/04/2019 HISTORY: fall TECHNIQUE: Left hip three views COMMENT: There has been internal fixation of a fracture of the proximal left femur with intramedullary carito and hip nail. There is considerable callus formation around the fracture with some heterotopic bone formation seen adjacent to the greater trochanter and lesser trochanter. This was not the case on 02/10/2019. IMPRESSION: Healing fracture proximal left femur. Electronically signed by Luke Varner 04/04/2019 10:25 AM
[2019-04-04 11:29] LABS: BASO# 0.01 X1000 (0.0-0.2); BASO% 0.2 % (0.0-0.8); HEMATOCRIT 33.6 % (37.0-47.0); HEMOGLOBIN 10.2 g/dL (12.0-16.0); IMM GRAN# 0.05 X1000 (0.0-0.04); IMM GRAN% 0.9 % (0.0-0.5); LYMPH# 1.77 X1000 (1.2-3.4); LYMPH% 31.1 % (20.5-51.1); MCH 29.3 PG (27-31); MCHC 30.4 g/dL (33-37); MCV 96.6 FL (81-99); MONO# 1.35 X1000 (0.11-0.59); MONO% 23.7 % (1.7-9.3); NEUT# 2.52 X1000 (1.4-6.5); NEUT% 44.1 % (42.2-75.2); PLT 123 X1000 (130-400); RBC 3.48 XMIL (4.2-5.4); RDW 17.9 % (11.5-14.5)
[2019-04-04 11:39] LABS: INR 1.36
[2019-04-04 11:40] LABS: PTT 37.9 Seconds (22.3-41.8)
[2019-04-04 12:06] LABS: AGAP 20; ALB/GLOB RATIO 1.9; ALBUMIN 3.5 g/dL (3.5-5.0); ALKALINE PHOSPHATASE 128 U/L (32-104); BUN 11 mg/dL (8-22); CALCIUM 8.3 mg/dL (8.8-10.2); CHLORIDE 102 mmol/L (98-107); COSMO 285; CREATININE 0.7 mg/dL (0.5-0.9); ESTIMATED GFR > 60; GLUCOSE 103 mg/dL (70-104); GOT 24 U/L (10-30); GPT 14 U/L (10-36); POTASSIUM 3.7 mmol/L (3.5-5.1); SODIUM 143 mmol/L (136-145); TCO2 21 mmol/L (25-35); TOTAL BILIRUBIN 0.52 mg/dL (0.20-1.00); TOTAL PROTEIN 5.3 g/dL (6.3-8.3)
--- NOTE | 2019-04-04 13:01 | EKG Report ---
Test Performed on : 04/04/2019 12:57:50 PM Test Reason : Altered mental status Blood Pressure : / mmHG Vent. Rate : 071 BPM Atrial Rate : 071 BPM P-R Int : 148 ms QRS Dur : 078 ms QT Int : 384 ms P-R-T Axes : 031 009 033 degrees QTc Int : 417 ms Normal sinus rhythm. Low voltage QRS Borderline ECG When compared with ECG of 05-FEB-2019 13:26, Nonspecific T wave abnormality now evident in Anterior leads Unconfirmed Result
[2019-04-04 14:11] LABS: URINE SOURCE CATH
[2019-04-04 14:15] LABS: BILIRUBIN URINE NEGATIVE (NEGATIVE); BLOOD URINE MODERATE (NEGATIVE); COLOR ORANGE; GLUCOSE URINE NEGATIVE (NEGATIVE); KETONE URINE 10 mg/dL (NEGATIVE); LEUKOCYTES URINE LARGE (NEGATIVE); NITRITE URINE POSITIVE (NEGATIVE); PH URINE 6.5; PROTEIN URINE 70 mg/dL (NEGATIVE); SP GRAVITY URINE 1.011; TURBIDITY URINE TURBID (CLEAR); UROBILINOGEN URINE 4 mg/dL (NORMAL)
[2019-04-04 14:20] LABS: UR EPITHELIAL CELLS <10 /HPF (<10); URINE BACTERIA 4+ /HPF; URINE RBC 20-40 /HPF (<10); URINE WBC TNTC /HPF (<10)
[2019-04-04 14:24] LABS: UR AMPHETAMINES QUAL NONE DETECTED (NONE DETECT); UR BARBITUATES QUAL NONE DETECTED (NONE DETECT); UR BENZODIAZEPIN QUAL NONE DETECTED (NONE DETECT); UR CANNABINOIDS QUAL NONE DETECTED (NONE DETECT); UR COCAINE QUAL NONE DETECTED (NONE DETECT); UR METHADONE QUAL NONE DETECTED (NONE DETECT); UR OPIATES QUAL NONE DETECTED (NONE DETECT); UR OXYCODONE QUAL NONE DETECTED (NONE DETECT); UR PCP QUAL NONE DETECTED (NONE DETECT)
[2019-04-04 14:40] LABS: URINE CASTS NONE SEEN; URINE YEAST NONE SEEN
[2019-04-04] MEDS ORDERED: LEVAQUIN 750 MG/D5W 750 MG/150 ML IVPB IV ONE (15:01)
[2019-04-04] MEDS ORDERED: ROBAXIN PO PRN (16:54)
[2019-04-04] MEDS ORDERED: BUSPAR PO SCH (17:00)
--- NOTE | 2019-04-04 20:38 | HISTORY AND PHYSICAL ---
CHIEF COMPLAINT: Acute mental change and weakness. HISTORY OF PRESENT ILLNESS: This is one of several [facility] admissions for this 73-year-old white female with chronic schizoaffective disorder. She was discharged from a psychiatric facility in [place] and after returning home, fell on the floor and could not get up. She was brought to the emergency room. She was confused, and there was difficulty in obtaining history and communicating, according to the emergency room physician. Lab was unremarkable except for urinary tract infection, moderate WBCs. Discussion had been made with her sister and with forensic social worker concerning long-term care, but because of her UTI, she is admitted for further evaluation and treatment. Blood and urine cultures were done in the emergency room. She was afebrile and white blood count 5700. Hematocrit was 33.6. PAST MEDICAL HISTORY: Hospitalized 02/04 for intertrochanteric fracture of the left hip. She had pulmonary embolus, and anemia requiring transfusions at that time. She has been in 2 facilities since discharge, one in [place] and another in [place] primary for psychiatric issues. There is history of multiple psychiatric admissions in different facilities including [facility]. PRESENT MEDICATIONS: Albuterol and Atrovent q.i.d. p.r.n.; Eliquis 5 mg b.i.d.; BuSpar 5 mg t.i.d.; Depakote 500 mg, 2 at bedtime; docusate 100 mg 1 b.i.d.; Aricept 5 mg at bedtime; Cymbalta 30 mg 1 b.i.d.; ferrous sulfate 325 mg 1 daily; Linzess 145 mg p.o. daily. ALLERGIES: Chlorpromazine, haloperidol and others. REVIEW OF SYSTEMS: Unremarkable except for schizoaffective disorder, and morbid obesity. She also has chronic venous insufficiency of her legs. FAMILY HISTORY: Unremarkable. SOCIAL HISTORY: She is a and lives with her sister when not in the psych facility. Her long-term needs include chronic psychiatric care, best provided by long-term care facility. PHYSICAL EXAMINATION: VITAL SIGNS: Temperature 97.8 degrees, heart rate 72, respirations 16, blood pressure 148/70, O2 saturation 97% on room air. GENERAL: The patient is an obese white female in no apparent distress. HEENT: Pupils equal, round and reactive to light. Pharynx benign. NECK: Supple, with no mass or lymphadenopathy. HEART: Regular in rate and rhythm with no murmur, rub or gallop. LUNGS: Clear, with no rales or rhonchi. ABDOMEN: Soft, with no mass, tenderness or organomegaly. EXTREMITIES: Ankle edema 2+. There is no cyanosis. RECTAL: Deferred. GENITALIA: Deferred. IMPRESSION: 1. Acute mental change. 2. Urinary tract infection. 3. History of pulmonary embolus. 4. Morbid obesity. 5. Schizoaffective disorder. PLAN: Admit for treatment with intravenous Levaquin. Cultures, both urine and blood were done in the emergency room. cc: Vinayak Dunlap MD
[2019-04-04] MEDS ORDERED: SEROQUEL PO SCH (21:00)
[2019-04-04] MEDS: DEPAKOTE PO SCH (21:52)
[2019-04-04] MEDS: COLACE PO SCH (21:52)
[2019-04-04] MEDS: BUSPAR PO SCH (21:52)
[2019-04-04] MEDS: CYMBALTA PO SCH (21:53)
[2019-04-04] MEDS: GLUCOPHAGE PO SCH (21:53)
[2019-04-04] MEDS: ELIQUIS PO SCH (21:53)
[2019-04-04] MEDS: ARICEPT PO SCH (21:53)
[2019-04-05] MEDS: LINZESS PO SCH (06:40)
[2019-04-05] MEDS: SEROQUEL PO SCH ×3 (08:52→20:26)
[2019-04-05] MEDS: ELIQUIS PO SCH ×2 (08:52→20:25)
[2019-04-05] MEDS: CYMBALTA PO SCH ×2 (08:52→20:25)
[2019-04-05] MEDS: BUSPAR PO SCH ×3 (08:52→16:42)
[2019-04-05] MEDS: COLACE PO SCH ×2 (08:52→20:25)
[2019-04-05] MEDS: FERROUS SULFATE PO SCH (08:53)
[2019-04-05] MEDS ORDERED: LEVAQUIN 500 MG/D5W 500 MG/100 ML IVPB IV SCH (16:00)
--- NOTE | 2019-04-05 17:42 | PROGRESS NOTE ---
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 The patient complains of weak and shaking. REVIEW OF SYSTEMS: Otherwise none reported. PAST MEDICAL HISTORY: Reviewed. PAST SURGICAL HISTORY: Reviewed. MEDICINES: Reviewed. ALLERGIES: Chlorpromazine, Haldol. PHYSICAL EXAMINATION: Temperature is 97.9 degrees, pulse 77, blood pressure is 123/69, 96% on room air.HEENT: Within normal limits. Neck: Supple. Chest: Clear. Heart: Sounds are regular. Belly: Soft, obese, nontender. Patient is in diapers. No peripheral edema. No obvious neurological deficits. INVESTIGATIONS: White cell count 5.7, hematocrit 33, platelets 123,000. PT 17, INR 1.36. SMA 12 is normal. Urinalysis positive for infection, urine toxic was negative. Urine cultures are gram- negative rods. Blood cultures are pending. ASSESSMENT AND PLAN: 1. Altered mental status due to metabolic encephalopathy. 2. Urinary tract infection. Currently patient is on intravenous Levaquin. She did receive 1 dose of Levaquin, has been discontinued. Will continue on Levaquin and follow up on culture and sensitivity. 3. Type 2 diabetes on metformin, high risk for pulmonary embolism, morbid obesity and schizoaffective disorder currently on Eliquis. 4. Continue Depakote, quetiapine, Cymbalta. 5. Chronic constipation on Linzess and will check the labs in the morning. Out of the bed with physical therapy. LEVEL OF DOCUMENTATION: 35 minutes. cc: MD Vinayak Ornelas MD
[2019-04-05] MEDS: ARICEPT PO SCH (20:25)
[2019-04-05] MEDS: DEPAKOTE PO SCH (20:26)
[2019-04-05] MEDS: GLUCOPHAGE PO SCH (20:26)
[2019-04-06] MEDS: LINZESS PO SCH (06:31)
[2019-04-06 07:36] LABS: BASO# 0.01 X1000 (0.0-0.2); BASO% 0.2 % (0.0-0.8); EOS# 0.01 X1000 (0.0-0.7); EOS% 0.2 % (0.0-10.0); HEMATOCRIT 32.7 % (37.0-47.0); HEMOGLOBIN 9.7 g/dL (12.0-16.0); IMM GRAN# 0.08 X1000 (0.0-0.04); IMM GRAN% 1.7 % (0.0-0.5); LYMPH# 1.78 X1000 (1.2-3.4); LYMPH% 38.2 % (20.5-51.1); MCHC 29.7 g/dL (33-37); MCV 97.6 FL (81-99); MONO# 1.02 X1000 (0.11-0.59); MONO% 21.9 % (1.7-9.3); NEUT# 1.76 X1000 (1.4-6.5); NEUT% 37.8 % (42.2-75.2); PLT 122 X1000 (130-400); RBC 3.35 XMIL (4.2-5.4); RDW 17.8 % (11.5-14.5); WBC 4.66 X1000 (4.8-10.8)
[2019-04-06 07:58] LABS: BANDS 8 % (0-1); LYMPHS 44 % (21-51); MONO 14 % (1-9); SEGS 34 % (42-75)
[2019-04-06 08:43] LABS: CALCIUM 8.8 mg/dL (8.8-10.2); SODIUM 140 mmol/L (136-145)
[2019-04-06 08:44] LABS: AGAP 12; BUN 10 mg/dL (8-22); CHLORIDE 103 mmol/L (98-107); COSMO 279; CREATININE 0.6 mg/dL (0.5-0.9); ESTIMATED GFR > 60; GLUCOSE 100 mg/dL (70-104); POTASSIUM 3.7 mmol/L (3.5-5.1); TCO2 25 mmol/L (25-35)
[2019-04-06] MEDS: BUSPAR PO SCH ×3 (08:44→16:09)
[2019-04-06] MEDS: COLACE PO SCH ×2 (08:44→20:41)
[2019-04-06] MEDS: CYMBALTA PO SCH ×2 (08:44→20:41)
[2019-04-06] MEDS: ELIQUIS PO SCH ×2 (08:45→20:41)
[2019-04-06] MEDS: SEROQUEL PO SCH ×3 (08:45→20:41)
[2019-04-06] MEDS: FERROUS SULFATE PO SCH (08:45)
[2019-04-06] MEDS: PRIMAXIN 1,000 MG in NS 250 ML IV SCH (12:21)
--- NOTE | 2019-04-06 15:48 | PROGRESS NOTE ---
DATE: 04/06/2019 SUBJECTIVE: The patient is a little better. Still off and on confusion. Complains of not being able to sleep in the bed. REVIEW OF SYSTEMS: Otherwise review of systems, none reported. PHYSICAL EXAMINATION: Temperature is 97.8 degrees, pulse 72, blood pressure is stable. HEENT Examination: Within normal limits. Chest: Clear. Heart sounds are regular. Belly is soft, obese. In diapers. No obvious deficits. INVESTIGATIONS: White cell count 4.6, hematocrit 32.7, platelets 122,000. SMA-7 is normal. Urine culture is positive for E. coli which is ESBL positive, resistant to Levaquin. ASSESSMENT AND PLAN: 1. Extended-spectrum B-lactamase positive Escherichia coli. Discontinue Levaquin. Change to imipenem. 2. History of pulmonary embolism, on Eliquis 5 mg by mouth twice a day. 3. Paranoid schizophrenia. Continue present treatment. 4. Type 2 diabetes, stable, and Dr. Dunlap is going to follow up on. LEVEL OF DOCUMENTATION: 35 minutes. cc: MD Vinayak Ornelas MD
[2019-04-06] MEDS: DEPAKOTE PO SCH (20:41)
[2019-04-06] MEDS: GLUCOPHAGE PO SCH (20:41)
[2019-04-06] MEDS: ARICEPT PO SCH (20:41)
[2019-04-07] MEDS: PRIMAXIN 1,000 MG in NS 250 ML IV SCH ×2 (00:54→12:00)
[2019-04-07] MEDS: LINZESS PO SCH (06:24)
--- NOTE | 2019-04-07 08:02 | PROGRESS NOTE ---
DATE: 04/07/2019 VITAL SIGNS: Temperature 98.4 degrees, heart rate 74, respirations 18, blood pressure 139/67, O2 saturation on room air 97%. Urine culture grew E. coli, resistant to Levaquin but sensitive to imipenem and Septra. She was changed to IV imipenem. She is alert and feeling a little better. PLAN: Continue physical therapy, ambulation, and obtain social service consult for long-term psychiatric placement. cc: Vinayak Dunlap MD
[2019-04-07] MEDS: SEROQUEL PO SCH ×3 (10:45→20:37)
[2019-04-07] MEDS: BUSPAR PO SCH ×3 (10:45→17:45)
[2019-04-07] MEDS: FERROUS SULFATE PO SCH (10:45)
[2019-04-07] MEDS: COLACE PO SCH ×2 (10:45→20:38)
[2019-04-07] MEDS: ELIQUIS PO SCH ×2 (10:46→20:37)
[2019-04-07] MEDS: CYMBALTA PO SCH ×2 (10:46→20:37)
[2019-04-07] MEDS ORDERED: MILK OF MAGNESIA PO ONE (17:13)
[2019-04-07] MEDS: GLUCOPHAGE PO SCH (20:38)
[2019-04-07] MEDS: ARICEPT PO SCH (20:38)
[2019-04-07] MEDS: DEPAKOTE PO SCH (20:38)
[2019-04-08] MEDS: PRIMAXIN 1,000 MG in NS 250 ML IV SCH ×2 (00:59→12:04)
[2019-04-08] MEDS: LINZESS PO SCH (06:20)
--- NOTE | 2019-04-08 08:04 | PROGRESS NOTE ---
DATE: 04/08/2019 OBJECTIVE: Vital signs stable with temperature 97.6 degrees, heart rate 77, respirations 16, blood pressure 160/78, O2 saturation on room air 93%. SUBJECTIVE: Patient is arousable and has no specific complaints. She desires to go home, but needs 24/7 care not available at this time. Chest is clear. Abdomen is soft. PLAN: Disposition soon, inpatient long-term care. cc: Vinayak Dunlap MD
[2019-04-08] MEDS: ELIQUIS PO SCH ×2 (08:42→20:38)
[2019-04-08] MEDS: COLACE PO SCH ×2 (08:42→20:38)
[2019-04-08] MEDS: FERROUS SULFATE PO SCH (08:42)
[2019-04-08] MEDS: CYMBALTA PO SCH ×2 (08:42→20:38)
[2019-04-08] MEDS: BUSPAR PO SCH ×3 (08:42→16:18)
[2019-04-08] MEDS: SEROQUEL PO SCH ×3 (08:42→20:38)
[2019-04-08] MEDS: GLUCOPHAGE PO SCH (20:38)
[2019-04-08] MEDS: DEPAKOTE PO SCH (20:38)
[2019-04-08] MEDS: SEPTRA DS PO SCH (20:38)
[2019-04-08] MEDS: ARICEPT PO SCH (20:38)
[2019-04-09] MEDS: LINZESS PO SCH (06:20)
--- NOTE | 2019-04-09 08:36 | DISCHARGE SUMMARY ---
ADMISSION DATE: 04/04/2019 DISCHARGE DATE: 04/09/2019 FINAL DIAGNOSES: 1. Acute mental change. 2. Acute cystitis, Escherichia coli. 3. Schizoaffective disorder. 4. Insomnia. 5. Diabetes. DISPOSITION: To rehabilitation. HISTORY AND HOSPITAL COURSE: This is one of several [facility] admissions for this 73-year- old, white female who was very weak at home and had a fall. There were x-rays of her pelvis and right hip. No bony injuries were seen. CT of her head revealed no acute intracranial disease. There was a rounded calcific nodule posteriorly in the right sphenoid sinus of uncertain significance. There was a CSF density extra-axial fluid collection over the left frontal lobe, also present in May of 2018. This is probably an arachnoid cyst. 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 There was no mass effect present. Left hip x-ray revealed healing fracture of the proximal left femur with intramedullary carito and hip nail. She was admitted because of urinary tract infection and mental change. She was initially placed on Levaquin. Urine culture revealed E. coli resistant to Levaquin and she was changed to imipenem. She remained afebrile and mental status improved. She was placed back on her usual home medicine and imipenem was continued until last evening when she was changed to Septra DS. E. coli was sensitive to this. Arrangements are made for rehab in [place]. She is transferred today by ambulance and will most likely need long-term care. cc: Vinayak Dunlap MD
[2019-04-09] MEDS: BUSPAR PO SCH (08:49)
[2019-04-09] MEDS: SEPTRA DS PO SCH (08:49)
[2019-04-09] MEDS: ELIQUIS PO SCH (08:50)
[2019-04-09] MEDS: CYMBALTA PO SCH (08:50)
[2019-04-09] MEDS: SEROQUEL PO SCH (08:50)
[2019-04-09] MEDS: COLACE PO SCH (08:50)
[2019-04-09] MEDS: FERROUS SULFATE PO SCH (08:50)
[2019-04-09 11:24] VITALS: BP 157/100
--- NOTE | 2019-04-10 10:00 | DISCHARGE SUMMARY ---
ADMISSION DATE: 04/04/2019 DISCHARGE DATE: 04/09/2019 ADDENDUM: The patient was sent to rehab in [place]. Final diagnosis included urinary tract infection, Escherichia coli, sensitive to imipenem. This was a type of bacteria that required isolation during the hospitalization. Because of safety issues, she should have a private room for another week. After a week, repeat urine culture can be done to determine resolution of the infection. Imipenem was discontinued last evening, and she was placed on Septra DS, which also was reported to be effective in treatment of her Escherichia coli. She has shown no evidence of infection, such as fever, tachycardia, or dysuria over the past few days. cc: Vinayak Dunlap MD
== END 2019-04-09 11:34 | DRG 690 ==
LOC: SUPCPDRO → ED 09:13 → EDIPHOLD 15:39 → 3N 17:41
PROVIDERS: ADMIT Family Medicine; ATTEND Family Medicine